=== PATIENT | female | born 1985 | race Caucasian/White ===

== ENCOUNTER 2016-09-21 08:45 | Day surgery (SDC) | payer MEDICAID ==
[2016-09-21] MEDS ORDERED: metroNIDAZOLE/Normal Saline 500 MG in Premix Bag 1 BAG IV ONE (10:00)
[2016-09-21] MEDS ORDERED: ceFAZolin 2 GM in Premix Bag 1 BAG IV ONE (10:00)
[2016-09-21] MEDS ORDERED: ceFAZolin 2 GM in Sodium Chloride 0.9% 50 ML IV ONE (10:00)
[2016-09-21] MEDS ORDERED: fentaNYL 250 MCG/5 ML SDV ONE (11:03)
[2016-09-21] MEDS ORDERED: Midazolam 1 MG/ML 2 ML SDV ONE (11:03)
[2016-09-21] MEDS ORDERED: Ondansetron 4 MG/2 ML SDV ONE (11:04)
[2016-09-21] MEDS ORDERED: Rocuronium 50 MG/5 ML Vial ONE (11:04)
[2016-09-21] MEDS ORDERED: Neostigmine Methylsulfate 1 MG/ML 5 ML Syringe ONE (11:04)
[2016-09-21] MEDS ORDERED: Propofol 200 MG/20 ML SDV ONE (11:04)
[2016-09-21] MEDS ORDERED: Dexamethasone 4 MG/ML SDV ONE (11:04)
[2016-09-21] MEDS ORDERED: Lidocaine 1% with EPINEPHrine 1:100,000 50 ML MDV ONE (11:15)
[2016-09-21] MEDS ORDERED: Bupivacaine 0.5% 50 ML MDV ONE (11:15)
[2016-09-21] MEDS ORDERED: Promethazine 25 MG/ML SDV IM PRN (11:51)
[2016-09-21] MEDS ORDERED: Benzocaine/Cetylpyridinium/Menthol Lozenge MUCMEM PRN (11:51)
[2016-09-21] MEDS ORDERED: Bisacodyl 5 MG Tab PO PRN (11:51)
[2016-09-21] MEDS ORDERED: diphenhydrAMINE 50 MG/ML SDV IVPUSH PRN (11:51)
[2016-09-21] MEDS ORDERED: Docusate Sodium 100 MG Cap PO PRN (11:51)
[2016-09-21] MEDS ORDERED: Acetaminophen 325 MG Tab PO PRN (11:51)
[2016-09-21] MEDS ORDERED: Acetaminophen/HYDROcodone 325-5 MG Tab PO PRN (11:51)
[2016-09-21] MEDS ORDERED: Sodium Chloride 0.9% 1,000 ML IV SCH (12:00)
[2016-09-21] MEDS ORDERED: Scopolamine 1.5 MG Transdermal Patch ONE (12:03)
[2016-09-21] MEDS ORDERED: Ketorolac 60 MG/2 ML SDV ONE (12:04)
--- NOTE | 2016-09-21 14:31 | CONS ---
DATE OF SERVICE: 09/21/2016 REFERRING PHYSICIAN: CONSULTING PHYSICIAN: Ramiro Ponce MD REASON FOR EVALUATION: Abdominal pain. HISTORY OF PRESENT ILLNESS: A pleasant 30-year-old female, who has acute on chronic history of right upper quadrant abdominal pain associated with eating greasy or fatty foods. This is an ongoing problem and has recently gotten worse, but in the last 24 hours has improved. PAST MEDICAL HISTORY: Recent . PAST SURGICAL HISTORY: None. SOCIAL HISTORY: She does not smoke. FAMILY HISTORY: No family history of ongoing disease. REVIEW OF SYSTEMS: GENERAL: The patient feels appropriate for her condition. HEENT: No symptoms. CARDIOVASCULAR: No history of myocardial infarction. RESPIRATORY: No shortness of breath. The patient is also training for a marathon. NEUROLOGICAL: Oriented x3. No symptoms. PSYCH: No concerns. GASTROINTESTINAL: As above. GENITOURINARY: No symptoms. The remainder of review of systems reviewed and is negative. PHYSICAL EXAMINATION: GENERAL: The patient is appropriate for condition. VITAL SIGNS: Stable. HEENT: Pupils are equal. NECK: Supple. CARDIOVASCULAR: Regular rhythm and rate. RESPIRATORY: Lungs are clear to consultation bilaterally. ABDOMEN: Bowel sounds are positive. Mild pain with palpation in right upper quadrant. EXTREMITIES: Full range of motion. NEUROLOGIC: Oriented x3. PSYCH: No gross depression. LABORATORY RESULTS: Show elevated liver function tests with normal bilirubin. ASSESSMENT AND PLAN: Chronic cholecystitis/cholelithiasis with recent acute attack. The patient's elevated liver function tests with a normal bilirubin suggest the possibility of choledocholithiasis, but this most likely subsequently passed. PLAN: The patient will undergo laparoscopic cholecystectomy. We discussed risks, benefits, alternatives, and limitations, including, but not limited to infection, bleeding, and perforation of abdominal structures. We also discussed cystic duct leaks, common bile duct injury. We also discussed cholangiogram and the role of common bile duct exploration. However, the pretest probability of this being consistent with a concomitant active choledocholithiasis. Therefore, we will defer any imaging of the common bile duct in the event that there is a postop bilirubin elevation. The patient understands these risks and wishes to proceed. Diagrams were also used during this discussion to improve communication. Ramiro Ponce MD /[id number]
[2016-09-21 16:13] VITALS: BP 132/67
--- NOTE | 2016-09-22 13:46 | PN ---
DATE OF SERVICE: 09/22/2016 SUBJECTIVE: I called the patient today. She feels subjectively better. I did inform her that her bilirubin is elevated along with her other liver function tests. The patient has been sent to Dr. Lira at [facility] due to concern of choledocholithiasis versus common bile duct injury. I did discuss with the patient and family the differential, the phone number and directions were given to the hospital and the sense of urgency was explained to the patient, and the goal of ERCP and MRCP. Ramiro Ponce MD /[id number]
--- NOTE | 2016-09-24 07:39 | OR ---
DATE OF PROCEDURE: 09/21/2016 This is a re-dictation, please refer to primary dictation if there is a duplicate dictation PROCEDURE: Laparoscopic cholecystectomy. COMPLICATIONS: None. 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 ANESTHESIA: General/local. INDICATIONS: A 30-year-old female with right upper quadrant abdominal pain, subsequently diagnosed with cholelithiasis and cholecystitis requiring laparoscopic cholecystectomy. The patient's bilirubin was noted to be normal prior to the procedure but recent liver function test elevation suggested a probable recent choledocholithiasis that subsequently resolved. Risks, benefits, alternatives, and limitations, including, but not limited to infection, bleeding, cystic duct leaks, common bile duct injuries, and the requirements for open cholecystectomy were explained to the patient and wished to proceed. PROCEDURE IN DETAIL: The patient was placed in a supine position. A supraumbilical curvilinear incision was made and a needle was used to perform a drop test, which was performed without abnormality. The abdomen was subsequently insufflated. An Optiview trocar was entered without abnormality and no evidence of enterotomy or injuries noted during entry. An additional 10 mm and two 5 mm ports were also entered under direct visualization. The omentum was noted to be wrapped around the gallbladder. Using blunt dissection, this would be eventually dissected. The patient had dense inflammation and adhesions in and around the gallbladder consistent with chronic and acute cholelithiasis. The gallbladder was retracted cephalad. The infundibulum was retracted inferior laterally. Over the next 15-20 minutes, a blunt dissection was commenced. The patient was noted to have essentially a very short cystic duct. This was wide at its base. A "clear view" of the gallbladder was obtained with a single pulsatile structure entering the gallbladder and a single nonpulsatile structure in the gallbladder. Due to the wide base of the cystic duct, a blue load stapler was used to transect this. Prior to this, careful attention was noted and images were taken to show that the cystic duct was directly entering the gallbladder. This was subsequently transected. The remaining one-third of the gallbladder was removed off the gallbladder bed without difficulty. The cystic artery was identified and subsequently clipped. The gallbladder will be delivered with a bag through the upper port requiring muscle spreading technique. Of note, the patient's gallbladder was noted to be a hydrops gallbladder. The liver bed was inspected for any evidence of injury, which there was none. This was thoroughly irrigated with 1 L of irrigation. No drains were placed. The abdomen was insufflated and the wounds were subsequently closed with 3-0 Vicryl and 4-0 Vicryl interrupted running fashion. Dermabond was applied. The patient tolerated the procedure well. Ramiro Ponce MD /[id number]
--- NOTE | 2016-09-24 09:12 | OR ---
DATE OF PROCEDURE: PROCEDURE: Laparoscopic cholecystectomy. PREOPERATIVE DIAGNOSIS: Cholelithiasis/cholecystitis, acute on chronic, Hydrops gallbladder. POSTOPERATIVE DIAGNOSIS: Cholelithiasis/cholecystitis, acute on chronic, Hydrops gallbladder. COMPLICATIONS: None. 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 ANESTHESIA: General/local. INDICATIONS: A 30-year-old female with ultrasound diagnosis of cholecystitis and cholelithiasis. RISK: Risks, benefits, alternatives, limitations including, but not limited to infection, bleeding, perforation of abdominal structures, cystic duct, bleeding, common bile duct injuries, open surgery and other risks were explained to the patient and she wished to proceed. PROCEDURE IN DETAIL: The patient was placed in supine position. A supraumbilical curvilinear incision was made. A Veress needle was used to enter the abdomen without abnormality. A drop test was performed. The abdomen was subsequently insufflated. An Optiview trocar was then used to insert after this and no evidence of trauma or injury was noted during entry. An additional 10 and two 5 mm ports were also entered under visualization. The gallbladder was retracted cephalad, the infundibulum was retracted inferolaterally. Immediately upon entering the abdomen, the patient was noted to have dense omentum around the gallbladder suggesting significant disease. It was also noted the patient essentially had a wide short cystic duct. During the blunt dissection, the dense adhesions which were encountered were carefully dissected with blunt dissection. Multiple images were taken of this. The cystic duct was identified and verified multiple times to ensure this directly connects to the gallbladder which it did. Due to its size, it was not amenable to clip therefore a 60 mm reticulating stapler will be used. This was fired without difficulty. The cystic artery was identified and was subsequently clipped. Prior to transection of these structures, 2/3rd of the gallbladder had moved off from the gallbladder bed, now the remaining 1/3rd of the gallbladder was dissected and removed. The gallbladder was removed using a bag and the operative incision was enlarged along with the dilation to facilitate the large inflamed gallbladder. After this was removed, the gallbladder bed was inspected for abnormality which there was none. There was no bleeding, it was thoroughly irrigated irrigation. A limited diagnostic laparoscopy was then performed next. No evidence of enterotomies noted during entry. The intestines, liver, and other abdominal structures were closely examined, and no abnormalities were noted. The air was removed. The wound was closed with 3-0 Vicryl and 4-0 Vicryl interrupted running fashion after being thoroughly irrigated. Dermabond was applied. The patient tolerated the procedure well. Ramiro Ponce MD /[id number]
== END 2016-09-21 18:45 | disposition home or self-care (01) ==
LOC: JP.SDS 08:45 → JP.2SS 13:45 → JP.SDS 18:45
PROVIDERS: ATTEND Surgery
DX: K80.12 Calculus of gallbladder with acute and chronic cholecystitis without obstruction (principal); Z79.899 Other long term (current) drug therapy
CPT/HCPCS: 47562; A9270; J0690; J1100; J1885; J2250; J2405; J2704; J3010; J7050; 88304

== ENCOUNTER 2018-12-11 07:07 | Inpatient (IN) | payer OTHER ==
[2018-12-11] MEDS ORDERED: Sodium Chloride 0.9% 10 ML Syringe FLUSH PRN ×2 (07:36→08:25)
[2018-12-11] MEDS ORDERED: Ondansetron 4 MG/2 ML SDV IV PRN (07:36)
[2018-12-11] MEDS ORDERED: Misoprostol 50 MCG (1/2 of 100 MCG) Tab VAG ONE (07:36)
[2018-12-11] MEDS ORDERED: Acetaminophen 325 MG Tab PO PRN (07:36)
--- NOTE | 2018-12-11 08:24 | PCM.LDHP ---
L&D History of Present Illness - General Date of Service: 12/11/18 Admit Problem/Dx: Patient Status Order with Admit Dx/Problem 12/11/18 07:36 Patient Status [ADT] Routine Admission Diagnosis/Problem Admission Diagnosis/Problem - Related Data Allergies/Adverse Reactions: Allergies Allergy/AdvReac Type Severity Reaction Status Date / Time No Known Allergies Allergy Verified 05/20/16 09:44 Home Medications: Home Meds Ferrous Sulfate 325 mg PO BID 05/21/16 [History] Pnv,Calcium 72/Iron/Folic Acid [ Plus Tablet] 1 tab PO DAILY 05/21/16 [ History] Acetaminophen/HYDROcodone [[place] 325-5 MG] 1 - 2 tab PO Q4H PRN #30 tab [Rx] Past Medical History Gastrointestinal History: Reports: Cholelithiasis [employer] History: Reports: Musculoskeletal History: Reports: Fracture Other Musculoskeletal History: left arm fracture Immunologic History: Reports: None Other Dermatologic History: atopic dermatitis, not present currently - Past Surgical History Dermatological Surgical History: Reports: None Social & Family History - Family History HEENT: Reports: None Hematologic: Reports: Anemia Other Hematologic Family History: with pregnancies Oncologic: Reports: Breast, Prostate Other Oncologic Family History: grandparents - Caffeine Use Caffeine Use: Reports: Other Other Caffeine Use: very occassional H&P Review of Systems - Review of Systems: Review Of Systems: See Below General: Reports: No Symptoms HEENT: Reports: No Symptoms Pulmonary: Reports: No Symptoms Cardiovascular: Reports: No Symptoms Gastrointestinal: Reports: No Symptoms Genitourinary: Reports: No Symptoms Musculoskeletal: Reports: No Symptoms Skin: Reports: No Symptoms Psychiatric: Reports: No Symptoms Neurological: Reports: No Symptoms Hematologic/Lymphatic: Reports: No Symptoms Immunologic: Reports: No Symptoms L&D Exam - Exam Exam: See Below - OB Specific Contraction Intensity: Mild Movement: Active Heart Tones: Present Heart Rate (FHR) Variability: Moderate (6-25 bmp) Presentation: Vertex - Ferrara Score Ferrara Score Cervix Position: Anterior Ferrara Score Consistency: Soft Ferrara Score Effacement: 31-50% Ferrara Score Dilation: 1-2 cm Ferrara Score 's Station: -2 Ferrara Score Total: 7 - Exam General: Alert, Oriented, Cooperative HEENT: PERRLA, Conjunctiva Clear, EACs Clear, EOMI, Hearing Intact, Mucosa Moist & [place], Nares Patent, Normal Nasal Septum, Posterior Pharynx Clear, TMs Clear Neck: Supple, Trachea Midline Lungs: Clear to Auscultation, Normal Respiratory Effort Cardiovascular: Regular Rate, Regular Rhythm GI/Abdominal Exam: Normal Bowel Sounds, Soft, Non-Tender, No Organomegaly, No Distention, No Abnormal Bruit, No Mass, Pelvis Stable Rectal Exam: Normal Exam, Normal Rectal Tone Genitourinary: Normal external exam, Normal bimanual exam, Normal speculum exam Back Exam: Normal Inspection, Full Range of Motion Extremities: Normal Inspection, Normal Range of Motion, Non-Tender, No Pedal Edema, Normal Capillary Refill Skin: Warm, Dry, Intact Neurological: Cranial Nerves Intact, Reflexes Equal Bilateral DTR: 2+: Patella (L), Patella (R) Psychiatric: Alert, Normal Affect, Normal Mood - Patient Data Lab Results Last 24 hrs: Laboratory Results - last 24 hr 12/11/18 12/11/18 12/11/18 Range/Units 07:29 07:32 07:32 WBC 14.5 H (4.5-11.0) K/uL RBC 4.27 (3.30-5.50) M/uL Hgb 12.7 (12.0-15.0) g/dL Hct 37.9 (36.0-48.0) % MCV 89 (80-98) fL MCH 30 (27-31) pg MCHC 34 (32-36) % Plt Count 184 (150-400) K/uL Neut % (Auto) 71 H (36-66) % Lymph % (Auto) 19 L (24-44) % Gem % (Auto) 9 H (2-6) % Eos % (Auto) 2 (2-4) % Baso % (Auto) 0 (0-1) % Sodium 136 L (140-148) mmol/L Potassium 3.6 (3.6-5.2) mmol/L Chloride 102 (100-108) mmol/L Carbon Dioxide 24 (21-32) mmol/L Anion Gap 13.6 (5.0-14.0) mmol/L BUN 11 (7-18) mg/dL Creatinine 0.8 (0.6-1.0) mg/dL Est Cr Clr Drug Dosing TNP Estimated GFR (MDRD) > 60 (>60) Glucose 81 (74-106) mg/dL Calcium 8.5 (8.5-10.1) mg/dL Total Bilirubin 0.3 D (0.2-1.0) mg/dL AST 17 D (15-37) U/L ALT 24 D (12-78) U/L Alkaline Phosphatase 128 H (46-116) U/L Lactate Dehydrogenase 142 (82-234) U/L Total Protein 6.9 (6.4-8.2) g/dL Albumin 2.9 L (3.4-5.0) g/dL Globulin 4.0 H (2.3-3.5) g/dL Albumin/Globulin Ratio 0.7 L (1.2-2.2) Urine Color Yellow (YELLOW) Urine Appearance Slightly cloudy A (CLEAR) Urine pH 7.0 (5.0-8.0) Ur Specific [place] 1.020 (1.008-1.030) Urine Protein Negative (NEGATIVE) mg/dL Urine Glucose (UA) Normal (NEGATIVE) mg/dL Urine Ketones Negative (NEGATIVE) mg/dL Urine Occult Blood Negative (NEGATIVE) Urine Nitrite Negative (NEGATIVE) Urine Bilirubin Negative (NEGATIVE) Urine Urobilinogen 0.2 (0.2-1.0) EU/dL Ur Leukocyte Esterase Negative (NEGATIVE) Urine RBC 0-5 (0-5) Urine WBC 0-5 (0-5) Ur Epithelial Cells Moderate Amorphous Sediment Not seen Urine Bacteria Moderate Urine Mucus Not seen Ur Random Creatinine (20.0-370.0) mg/dL U Random Total Protein (6.0-11.9) mg/dL Protein/Creatinin Ratio (21.0-161.0) mg/g Urine Opiates Screen (NEGATIVE) Ur Oxycodone Screen (NEGATIVE) Urine Methadone Screen (NEGATIVE) Ur Propoxyphene Screen (NEGATIVE) Ur Barbiturates Screen (NEGATIVE) Ur Tricyclics Screen (NEGATIVE) Ur Phencyclidine Scrn (NEGATIVE) Ur Amphetamine Screen (NEGATIVE) U Methamphetamines Scrn (NEGATIVE) Urine MDMA Screen (NEGATIVE) U Benzodiazepines Scrn (NEGATIVE) U Cocaine Metab Screen (NEGATIVE) U Marijuana (THC) Screen (NEGATIVE) 12/11/18 12/11/18 Range/Units 07:32 07:36 WBC (4.5-11.0) K/uL RBC (3.30-5.50) M/uL Hgb (12.0-15.0) g/dL Hct (36.0-48.0) % MCV (80-98) fL MCH (27-31) pg MCHC (32-36) % Plt Count (150-400) K/uL Neut % (Auto) (36-66) % Lymph % (Auto) (24-44) % Gem % (Auto) (2-6) % Eos % (Auto) (2-4) % Baso % (Auto) (0-1) % Sodium (140-148) mmol/L Potassium (3.6-5.2) mmol/L Chloride (100-108) mmol/L Carbon Dioxide (21-32) mmol/L Anion Gap (5.0-14.0) mmol/L BUN (7-18) mg/dL Creatinine (0.6-1.0) mg/dL Est Cr Clr Drug Dosing Estimated GFR (MDRD) (>60) Glucose (74-106) mg/dL Calcium (8.5-10.1) mg/dL Total Bilirubin (0.2-1.0) mg/dL AST (15-37) U/L ALT (12-78) U/L Alkaline Phosphatase (46-116) U/L Lactate Dehydrogenase (82-234) U/L Total Protein (6.4-8.2) g/dL Albumin (3.4-5.0) g/dL Globulin (2.3-3.5) g/dL Albumin/Globulin Ratio (1.2-2.2) Urine Color (YELLOW) Urine Appearance (CLEAR) Urine pH (5.0-8.0) Ur Specific [place] (1.008-1.030) Urine Protein (NEGATIVE) mg/dL Urine Glucose (UA) (NEGATIVE) mg/dL Urine Ketones (NEGATIVE) mg/dL Urine Occult Blood (NEGATIVE) Urine Nitrite (NEGATIVE) Urine Bilirubin (NEGATIVE) Urine Urobilinogen (0.2-1.0) EU/dL Ur Leukocyte Esterase (NEGATIVE) Urine RBC (0-5) Urine WBC (0-5) Ur Epithelial Cells Amorphous Sediment Urine Bacteria Urine Mucus Ur Random Creatinine 92.1 (20.0-370.0) mg/dL U Random Total Protein 10.4 (6.0-11.9) mg/dL Protein/Creatinin Ratio 112.9 (21.0-161.0) mg/g Urine Opiates Screen Negative (NEGATIVE) Ur Oxycodone Screen Negative (NEGATIVE) Urine Methadone Screen Negative (NEGATIVE) Ur Propoxyphene Screen Negative (NEGATIVE) Ur Barbiturates Screen Negative (NEGATIVE) Ur Tricyclics Screen Negative (NEGATIVE) Ur Phencyclidine Scrn Negative (NEGATIVE) Ur Amphetamine Screen Negative (NEGATIVE) U Methamphetamines Scrn Negative (NEGATIVE) Urine MDMA Screen Negative (NEGATIVE) U Benzodiazepines Scrn Negative (NEGATIVE) U Cocaine Metab Screen Negative (NEGATIVE) U Marijuana (THC) Screen Negative (NEGATIVE) Result Diagrams: 12/11/18 07:32 12/11/18 07:32 - Problem List (1) Elevated BP without diagnosis of hypertension SNOMED Code(s): 194693013 ICD Code: R03.0 - ELEVATED BLOOD-PRESSURE READING, W/O DIAGNOSIS OF HTN Status: Acute Current Visit: Yes (2) Post-term , 40-42 weeks of gestation SNOMED Code(s): 50798636571565 ICD Code: O48.0 - POST-TERM Status: Acute Current Visit: Yes (3) Elective induction of labor planned SNOMED Code(s): 150281501 ICD Code: [id number] - Status: Acute Current Visit: No (4) SNOMED Code(s): 52508804 ICD Code: Z33.1 - STATE, INCIDENTAL Status: Acute Current Visit : No Qualifiers: Weeks of gestation: 40 weeks Problem List Initiated/Reviewed/Updated: Yes Orders Last 24hrs: Active Orders 24 hr Category Date Time Status Patient Status [ADT] Routine ADT 12/11/18 07:36 Active Communication Order [RC] ASDIRECTED Care 12/11/18 07:36 Active Heart Tones [RC] PER UNIT ROUTINE Care 12/11/18 07:36 Active May Shower [RC] ASDIRECTED Care 12/11/18 07:36 Active Notify Provider Vital Signs [RC] PRN Care 12/11/18 07:36 Active Notify Provider [RC] PRN Care 12/11/18 07:36 Active Up ad Yani [RC] ASDIRECTED Care 12/11/18 07:36 Active Vital Signs [RC] PER UNIT ROUTINE Care 12/11/18 07:36 Active Regular Diet [DIET] Diet 12/11/18 Breakfast Active Acetaminophen [Tylenol] Med 12/11/18 07:36 Active 650 mg PO Q4H PRN Ondansetron [Zofran] Med 12/11/18 07:36 Active 4 mg IV Q4H PRN Sodium Chloride 0.9% [Saline Flush] Med 12/11/18 07:36 Active 10 ml FLUSH ASDIRECTED PRN Saline Lock Insert [OM.PC] Routine Oth 12/11/18 07:36 Ordered Resuscitation Status Routine Resus Stat 12/11/18 07:36 Ordered Medication Orders Acetaminophen (Tylenol) 650 mg PO Q4H PRN PRN Reason: Pain (Mild 1-3) and fever Ondansetron HCl (Zofran) 4 mg IV Q4H PRN PRN Reason: Nausea/Vomiting Sodium Chloride (Saline Flush) 10 ml FLUSH ASDIRECTED PRN PRN Reason: Keep Vein Open Assessment/Plan Comment:: 12/11/2018 32 yo here at 40 6/7 weeks gestation for induction of labor SVE-1-2/50/-2 Contractions-irregular FHTs category one BP elevated on admission, labs negative, no clonus, DTRS normal Cytotec 50mcg placed vaginally Labs-A positive, Hep B neg, Hep C neg, HIV neg, nonreactive RPR, Rubella Immune , GBS negative, Hgb-12.7, LDH-142, P/C ratio-112.9 Plan- Continue to monitor for active labor Continue to monitor FHTs Pain management per patient request Plan and anticipate a vaginal delivery
[2018-12-11] MEDS ORDERED: Naloxone 0.4 MG/ML SDV IVPUSH PRN (08:25)
[2018-12-11] MEDS ORDERED: ePHEDrine 50 MG/ML SDV IVPUSH PRN ×2 (08:25)
[2018-12-11] MEDS ORDERED: Lactated Ringers 1,000 ML IV ONE (08:25)
[2018-12-11] MEDS ORDERED: diphenhydrAMINE 50 MG/ML SDV IVPUSH PRN ×2 (08:25)
[2018-12-11] MEDS ORDERED: Ropivacaine 200 MG in Premix Bag 1 BAG EPIDUR SCH (08:30)
[2018-12-11] MEDS ORDERED: Lidocaine 1% 50 ML MDV ONE (13:38)
[2018-12-11] MEDS ORDERED: Lidocaine 1% 20 ML MDV INJECT ONE (13:38)
[2018-12-11] MEDS ORDERED: fentaNYL 100 MCG/2 ML SDV ONE (13:40)
[2018-12-11] MEDS ORDERED: fentaNYL 100 MCG/2 ML SDV IVPUSH ONE (13:44)
[2018-12-11] MEDS ORDERED: Carboprost Tromethamine 250 MCG/1 ML Amp ONE (14:01)
[2018-12-11] MEDS ORDERED: Methylergonovine 0.2 MG/1 ML Amp ONE (14:01)
[2018-12-11] MEDS ORDERED: Misoprostol 200 MCG Tab ONE (14:01)
[2018-12-11] MEDS ORDERED: ceFAZolin 2 GM in Premix Bag 1 BAG IV ONE (14:05)
[2018-12-11] MEDS ORDERED: Misoprostol 200 MCG Tab RECTAL ONE (14:21)
[2018-12-11] MEDS ORDERED: Methylergonovine 0.2 MG/1 ML Amp IM ONE (14:21)
[2018-12-11] MEDS ORDERED: Carboprost Tromethamine 250 MCG/1 ML Amp IM ONE (14:52)
[2018-12-11] MEDS ORDERED: Witch Hazel Medicated Pads 100/Jar TOP ONE (16:41)
[2018-12-11] MEDS ORDERED: Lanolin 100% Cream 40 GM Tube TOP ONE (16:41)
[2018-12-11] MEDS ORDERED: Acetaminophen/Codeine 300-30 MG Tab PO PRN (16:41)
[2018-12-11] MEDS ORDERED: Benzocaine 20% Top Spray 56 GM Bottle TOP PRN (16:41)
[2018-12-11] MEDS ORDERED: Ibuprofen 200 MG Tab, 24 Tab Bulk Bottle PO PRN (16:41)
[2018-12-11] MEDS ORDERED: Docusate Sodium 100 MG Cap PO PRN (16:41)
[2018-12-11] MEDS ORDERED: Acetaminophen 325 MG Tab, 50 Tab Bulk Bottle PO PRN (16:41)
--- NOTE | 2018-12-11 17:35 | PCM.PNLD ---
Labor Progress Note - VS & Meds Vital Signs: Last Vital Signs Temp 35.8 C 12/11/18 08:00 Pulse 88 12/11/18 09:00 Resp 20 12/11/18 09:00 BP 139/75 12/11/18 09:00 Pulse Ox Active Medications: Current Medications Acetaminophen (Tylenol) 650 mg PO Q4H PRN PRN Reason: Pain (Mild 1-3) and fever Acetaminophen (Tylenol Bulk Bottle) 325 mg PO Q4H PRN PRN Reason: Pain Acetaminophen/Codeine Phosphate (Tylenol With Codeine No.3 300mg/30mg) 1 tab PO Q4H PRN PRN Reason: Pain (moderate 4-6) Benzocaine (Buoj-L-Ofzofmr 20% Terral) 0 gm TOP Q4H PRN PRN Reason: ITCHY/BURNY Diphenhydramine HCl (Benadryl) 25 mg IVPUSH Q6H PRN PRN Reason: Itching Diphenhydramine HCl (Benadryl) 50 mg IVPUSH Q6H PRN PRN Reason: Itching Docusate Sodium (Colace) 100 mg PO BID PRN PRN Reason: Constipation Ephedrine Sulfate (Ephedrine Sulfate) 10 mg IVPUSH ASDIRECTED PRN PRN Reason: Hypotension Ephedrine Sulfate (Ephedrine Sulfate) 10 mg IVPUSH ASDIRECTED PRN PRN Reason: Hypotension Ropivacaine 200 mg/ Premix 100 mls @ 0 mls/hr EPIDUR ASDIRECTED MELVIN Ibuprofen (Motrin Bulk Bottle) 600 mg PO Q6H PRN PRN Reason: Pain Naloxone HCl (Narcan) 0.1 mg IVPUSH ASDIRECTED PRN PRN Reason: Oversedation Ondansetron HCl (Zofran) 4 mg IV Q4H PRN PRN Reason: Nausea/Vomiting Sodium Chloride (Saline Flush) 10 ml FLUSH ASDIRECTED PRN PRN Reason: Keep Vein Open Sodium Chloride (Saline Flush) 10 ml FLUSH ASDIRECTED PRN PRN Reason: Keep Vein Open Discontinued Medications Carboprost Tromethamine (Hemabate Ds) Confirm Administered Dose 250 mcg .ROUTE .STK-MED ONE Stop: 12/11/18 14:02 Emollient Ointment (Lansinoh Hpa) 1 gm TOP ASDIRECTED ONE Stop: 12/11/18 16:42 Fentanyl (Sublimaze) Confirm Administered Dose 100 mcg .ROUTE .STK-MED ONE Stop: 12/11/18 13:41 Fentanyl (Sublimaze) 50 mcg IVPUSH ONETIME ONE Stop: 12/11/18 13:45 Lactated Ringer's (Ringers, Lactated) 1,000 mls @ 999 mls/hr IV .BOLUS ONE Stop: 12/11/18 09:25 Oxytocin/Sodium Chloride (Pitocin In Ns 20 Units/1,000 Ml) Confirm Administered Dose 20 unit in 1,000 mls @ as directed .ROUTE .STK-MED ONE Stop: 12/11/18 13:40 Cefazolin Sodium/Dextrose 2 gm (/ Premix) 50 mls @ 100 mls/hr IV ONETIME ONE Stop: 12/11/18 14:34 Oxytocin/Sodium Chloride (Pitocin In Ns 20 Units/1,000 Ml) Confirm Administered Dose 20 unit in 1,000 mls @ as directed .ROUTE .STK-MED ONE Stop: 12/11/18 14:33 Lidocaine HCl (Xylocaine 1%) Confirm Administered Dose 50 ml .ROUTE .STK-MED ONE Stop: 12/11/18 13:39 Methylergonovine Maleate (Methergine) Confirm Administered Dose 0.2 mg .ROUTE .STK-MED ONE Stop: 12/11/18 14:02 Misoprostol (Cytotec) 50 mcg VAG ONETIME ONE Stop: 12/11/18 07:37 Last Admin: 12/11/18 08:00 Dose: 50 mcg Misoprostol (Cytotec) Confirm Administered Dose 800 mcg .ROUTE .STK-MED ONE Stop: 12/11/18 14:02 Godfrey Momin (Tucks) 1 pad TOP ASDIRECTED ONE Stop: 12/11/18 16:42 - Uterine Contractions Uterine Monitoring Mode: External [place] Contraction Frequency (min): 140 Contraction Duration (sec): 40-60 Contraction Intensity: Moderate to Strong Uterine Resting Tone: Soft - Monitoring Monitor Mode: External Ultrasound Heart Rate (FHR) Variability: Moderate (6-25 bmp) - Vaginal Exam Dilation (cm): 1-2 Effacement (Percent): 90 Station: -2 Cervical Position: Posterior Sterile Vaginal Exam Performed By: Magi Sharp - Labor Progress (Free Text) Labor Progress: 12/11/2018 Patient has had small amount of change but is soraida very frequently FHTs category one Patient currently comfortable Plan- Continue to monitor labor Continue to monitor FHTS Patient desires epidural for pain control, orders in. Plan and anticipate a vaginal delivery
--- NOTE | 2018-12-11 17:42 | PCM.DEL ---
L & D Note - General Info Date of Service: 12/11/18 - Delivery Note Cervical Ripening Method: Misoprostil Delivery Outcome: Livebirth Delivery Method: Spontaneous Vaginal Delivery-Single Delivery Mode: Spontaneous Presentation: Left Occiput Anterior (NAVIN) Nuchal Cord: Present, Reduced Anesthesia Type: None Amniotic Fluid Description: Meconium Stained Episiotomy Type: None Laceration: 2nd Degree, Perineal Suture type: Chromic Suture size: 3-0 Placenta: Intact, Manual Removal, Retained, Meconium Stained Cord: 3 Vessels Estimated Blood Loss: 1,000 Resuscitation Needed: No Petroleum: Bulb Syringe, Stimulated, Warmed, Walker Used Score 1 min: 5 Score 5 min: 8 Post Delivery Events: Hemorrhage, Retained Placenta Second Stage Interventions: Reports: Second Nurse Assessed Progress of Descent, Second Nurse Reviewed Contraction Pattern, Second Nurse Reviewed Heart Tones, Encouragement Given, Nurse Consultation Requested, Pushing Effectively, Pushing, McRobert's Position - General Info Date of Service: 12/11/18 Functional Status: Reports: Pain Controlled - Review of Systems General: Reports: No Symptoms HEENT: Reports: No Symptoms Pulmonary: Reports: No Symptoms Cardiovascular: Reports: No Symptoms Gastrointestinal: Reports: No Symptoms Genitourinary: Reports: No Symptoms Musculoskeletal: Reports: No Symptoms Skin: Reports: No Symptoms Neurological: Reports: No Symptoms Psychiatric: Reports: No Symptoms - Patient Data Vitals - Most Recent: Last Vital Signs Temp 35.8 C 12/11/18 08:00 Pulse 88 12/11/18 09:00 Resp 20 12/11/18 09:00 BP 139/75 12/11/18 09:00 Pulse Ox Weight - Most Recent: 87.997 kg Lab Results Last 24 Hours: Laboratory Results - last 24 hr 12/11/18 12/11/18 12/11/18 Range/Units 07:29 07:32 07:32 WBC 14.5 H (4.5-11.0) K/uL RBC 4.27 (3.30-5.50) M/uL Hgb 12.7 (12.0-15.0) g/dL Hct 37.9 (36.0-48.0) % MCV 89 (80-98) fL MCH 30 (27-31) pg MCHC 34 (32-36) % Plt Count 184 (150-400) K/uL Neut % (Auto) 71 H (36-66) % Lymph % (Auto) 19 L (24-44) % Coleman % (Auto) 9 H (2-6) % Eos % (Auto) 2 (2-4) % Baso % (Auto) 0 (0-1) % Sodium 136 L (140-148) mmol/L Potassium 3.6 (3.6-5.2) mmol/L Chloride 102 (100-108) mmol/L Carbon Dioxide 24 (21-32) mmol/L Anion Gap 13.6 (5.0-14.0) mmol/L BUN 11 (7-18) mg/dL Creatinine 0.8 (0.6-1.0) mg/dL Est Cr Clr Drug Dosing TNP Estimated GFR (MDRD) > 60 (>60) Glucose 81 (74-106) mg/dL Calcium 8.5 (8.5-10.1) mg/dL Total Bilirubin 0.3 D (0.2-1.0) mg/dL AST 17 D (15-37) U/L ALT 24 D (12-78) U/L Alkaline Phosphatase 128 H (46-116) U/L Lactate Dehydrogenase 142 (82-234) U/L Total Protein 6.9 (6.4-8.2) g/dL Albumin 2.9 L (3.4-5.0) g/dL Globulin 4.0 H (2.3-3.5) g/dL Albumin/Globulin Ratio 0.7 L (1.2-2.2) Urine Color Yellow (YELLOW) Urine Appearance Slightly cloudy A (CLEAR) Urine pH 7.0 (5.0-8.0) Ur Specific Gibson 1.020 (1.008-1.030) Urine Protein Negative (NEGATIVE) mg/dL Urine Glucose (UA) Normal (NEGATIVE) mg/dL Urine Ketones Negative (NEGATIVE) mg/dL Urine Occult Blood Negative (NEGATIVE) Urine Nitrite Negative (NEGATIVE) Urine Bilirubin Negative (NEGATIVE) Urine Urobilinogen 0.2 (0.2-1.0) EU/dL Ur Leukocyte Esterase Negative (NEGATIVE) Urine RBC 0-5 (0-5) Urine WBC 0-5 (0-5) Ur Epithelial Cells Moderate Amorphous Sediment Not seen Urine Bacteria Moderate Urine Mucus Not seen Ur Random Creatinine (20.0-370.0) mg/dL U Random Total Protein (6.0-11.9) mg/dL Protein/Creatinin Ratio (21.0-161.0) mg/g Urine Opiates Screen (NEGATIVE) Ur Oxycodone Screen (NEGATIVE) Urine Methadone Screen (NEGATIVE) Ur Propoxyphene Screen (NEGATIVE) Ur Barbiturates Screen (NEGATIVE) Ur Tricyclics Screen (NEGATIVE) Ur Phencyclidine Scrn (NEGATIVE) Ur Amphetamine Screen (NEGATIVE) U Methamphetamines Scrn (NEGATIVE) Urine MDMA Screen (NEGATIVE) U Benzodiazepines Scrn (NEGATIVE) U Cocaine Metab Screen (NEGATIVE) U Marijuana (THC) Screen (NEGATIVE) Blood Type Gel Antibody Screen 12/11/18 12/11/18 12/11/18 Range/Units 07:32 07:36 14:40 WBC (4.5-11.0) K/uL RBC (3.30-5.50) M/uL Hgb (12.0-15.0) g/dL Hct (36.0-48.0) % MCV (80-98) fL MCH (27-31) pg MCHC (32-36) % Plt Count (150-400) K/uL Neut % (Auto) (36-66) % Lymph % (Auto) (24-44) % Coleman % (Auto) (2-6) % Eos % (Auto) (2-4) % Baso % (Auto) (0-1) % Sodium (140-148) mmol/L Potassium (3.6-5.2) mmol/L Chloride (100-108) mmol/L Carbon Dioxide (21-32) mmol/L Anion Gap (5.0-14.0) mmol/L BUN (7-18) mg/dL Creatinine (0.6-1.0) mg/dL Est Cr Clr Drug Dosing Estimated GFR (MDRD) (>60) Glucose (74-106) mg/dL Calcium (8.5-10.1) mg/dL Total Bilirubin (0.2-1.0) mg/dL AST (15-37) U/L ALT (12-78) U/L Alkaline Phosphatase (46-116) U/L Lactate Dehydrogenase (82-234) U/L Total Protein (6.4-8.2) g/dL Albumin (3.4-5.0) g/dL Globulin (2.3-3.5) g/dL Albumin/Globulin Ratio (1.2-2.2) Urine Color (YELLOW) Urine Appearance (CLEAR) Urine pH (5.0-8.0) Ur Specific Gibson (1.008-1.030) Urine Protein (NEGATIVE) mg/dL Urine Glucose (UA) (NEGATIVE) mg/dL Urine Ketones (NEGATIVE) mg/dL Urine Occult Blood (NEGATIVE) Urine Nitrite (NEGATIVE) Urine Bilirubin (NEGATIVE) Urine Urobilinogen (0.2-1.0) EU/dL Ur Leukocyte Esterase (NEGATIVE) Urine RBC (0-5) Urine WBC (0-5) Ur Epithelial Cells Amorphous Sediment Urine Bacteria Urine Mucus Ur Random Creatinine 92.1 (20.0-370.0) mg/dL U Random Total Protein 10.4 (6.0-11.9) mg/dL Protein/Creatinin Ratio 112.9 (21.0-161.0) mg/g Urine Opiates Screen Negative (NEGATIVE) Ur Oxycodone Screen Negative (NEGATIVE) Urine Methadone Screen Negative (NEGATIVE) Ur Propoxyphene Screen Negative (NEGATIVE) Ur Barbiturates Screen Negative (NEGATIVE) Ur Tricyclics Screen Negative (NEGATIVE) Ur Phencyclidine Scrn Negative (NEGATIVE) Ur Amphetamine Screen Negative (NEGATIVE) U Methamphetamines Scrn Negative (NEGATIVE) Urine MDMA Screen Negative (NEGATIVE) U Benzodiazepines Scrn Negative (NEGATIVE) U Cocaine Metab Screen Negative (NEGATIVE) U Marijuana (THC) Screen Negative (NEGATIVE) Blood Type A POSITIVE Gel Antibody Screen Negative 12/11/18 Range/Units 16:41 WBC (4.5-11.0) K/uL RBC (3.30-5.50) M/uL Hgb 11.2 L (12.0-15.0) g/dL Hct 34.0 L (36.0-48.0) % MCV (80-98) fL MCH (27-31) pg MCHC (32-36) % Plt Count (150-400) K/uL Neut % (Auto) (36-66) % Lymph % (Auto) (24-44) % Coleman % (Auto) (2-6) % Eos % (Auto) (2-4) % Baso % (Auto) (0-1) % Sodium (140-148) mmol/L Potassium (3.6-5.2) mmol/L Chloride (100-108) mmol/L Carbon Dioxide (21-32) mmol/L Anion Gap (5.0-14.0) mmol/L BUN (7-18) mg/dL Creatinine (0.6-1.0) mg/dL Est Cr Clr Drug Dosing Estimated GFR (MDRD) (>60) Glucose (74-106) mg/dL Calcium (8.5-10.1) mg/dL Total Bilirubin (0.2-1.0) mg/dL AST (15-37) U/L ALT (12-78) U/L Alkaline Phosphatase (46-116) U/L Lactate Dehydrogenase (82-234) U/L Total Protein (6.4-8.2) g/dL Albumin (3.4-5.0) g/dL Globulin (2.3-3.5) g/dL Albumin/Globulin Ratio (1.2-2.2) Urine Color (YELLOW) Urine Appearance (CLEAR) Urine pH (5.0-8.0) Ur Specific Gibson (1.008-1.030) Urine Protein (NEGATIVE) mg/dL Urine Glucose (UA) (NEGATIVE) mg/dL Urine Ketones (NEGATIVE) mg/dL Urine Occult Blood (NEGATIVE) Urine Nitrite (NEGATIVE) Urine Bilirubin (NEGATIVE) Urine Urobilinogen (0.2-1.0) EU/dL Ur Leukocyte Esterase (NEGATIVE) Urine RBC (0-5) Urine WBC (0-5) Ur Epithelial Cells Amorphous Sediment Urine Bacteria Urine Mucus Ur Random Creatinine (20.0-370.0) mg/dL U Random Total Protein (6.0-11.9) mg/dL Protein/Creatinin Ratio (21.0-161.0) mg/g Urine Opiates Screen (NEGATIVE) Ur Oxycodone Screen (NEGATIVE) Urine Methadone Screen (NEGATIVE) Ur Propoxyphene Screen (NEGATIVE) Ur Barbiturates Screen (NEGATIVE) Ur Tricyclics Screen (NEGATIVE) Ur Phencyclidine Scrn (NEGATIVE) Ur Amphetamine Screen (NEGATIVE) U Methamphetamines Scrn (NEGATIVE) Urine MDMA Screen (NEGATIVE) U Benzodiazepines Scrn (NEGATIVE) U Cocaine Metab Screen (NEGATIVE) U Marijuana (THC) Screen (NEGATIVE) Blood Type Gel Antibody Screen Med Orders - Current: Current Medications Acetaminophen (Tylenol) 650 mg PO Q4H PRN PRN Reason: Pain (Mild 1-3) and fever Acetaminophen (Tylenol Bulk Bottle) 325 mg PO Q4H PRN PRN Reason: Pain Acetaminophen/Codeine Phosphate (Tylenol With Codeine No.3 300mg/30mg) 1 tab PO Q4H PRN PRN Reason: Pain (moderate 4-6) Benzocaine (Ucvy-E-Dvsdqle 20% Carolina) 0 gm TOP Q4H PRN PRN Reason: ITCHY/BURNY Diphenhydramine HCl (Benadryl) 25 mg IVPUSH Q6H PRN PRN Reason: Itching Diphenhydramine HCl (Benadryl) 50 mg IVPUSH Q6H PRN PRN Reason: Itching Docusate Sodium (Colace) 100 mg PO BID PRN PRN Reason: Constipation Ephedrine Sulfate (Ephedrine Sulfate) 10 mg IVPUSH ASDIRECTED PRN PRN Reason: Hypotension Ephedrine Sulfate (Ephedrine Sulfate) 10 mg IVPUSH ASDIRECTED PRN PRN Reason: Hypotension Ropivacaine 200 mg/ Premix 100 mls @ 0 mls/hr EPIDUR ASDIRECTED MELVIN Ibuprofen (Motrin Bulk Bottle) 600 mg PO Q6H PRN PRN Reason: Pain Naloxone HCl (Narcan) 0.1 mg IVPUSH ASDIRECTED PRN PRN Reason: Oversedation Ondansetron HCl (Zofran) 4 mg IV Q4H PRN PRN Reason: Nausea/Vomiting Sodium Chloride (Saline Flush) 10 ml FLUSH ASDIRECTED PRN PRN Reason: Keep Vein Open Sodium Chloride (Saline Flush) 10 ml FLUSH ASDIRECTED PRN PRN Reason: Keep Vein Open Discontinued Medications Carboprost Tromethamine (Hemabate Ds) Confirm Administered Dose 250 mcg .ROUTE .STK-MED ONE Stop: 12/11/18 14:02 Emollient Ointment (Lansinoh Hpa) 1 gm TOP ASDIRECTED ONE Stop: 12/11/18 16:42 Fentanyl (Sublimaze) Confirm Administered Dose 100 mcg .ROUTE .STK-MED ONE Stop: 12/11/18 13:41 Fentanyl (Sublimaze) 50 mcg IVPUSH ONETIME ONE Stop: 12/11/18 13:45 Lactated Ringer's (Ringers, Lactated) 1,000 mls @ 999 mls/hr IV .BOLUS ONE Stop: 12/11/18 09:25 Oxytocin/Sodium Chloride (Pitocin In Ns 20 Units/1,000 Ml) Confirm Administered Dose 20 unit in 1,000 mls @ as directed .ROUTE .STK-MED ONE Stop: 12/11/18 13:40 Cefazolin Sodium/Dextrose 2 gm (/ Premix) 50 mls @ 100 mls/hr IV ONETIME ONE Stop: 12/11/18 14:34 Oxytocin/Sodium Chloride (Pitocin In Ns 20 Units/1,000 Ml) Confirm Administered Dose 20 unit in 1,000 mls @ as directed .ROUTE .STK-MED ONE Stop: 12/11/18 14:33 Lidocaine HCl (Xylocaine 1%) Confirm Administered Dose 50 ml .ROUTE .STK-MED ONE Stop: 12/11/18 13:39 Methylergonovine Maleate (Methergine) Confirm Administered Dose 0.2 mg .ROUTE .STK-MED ONE Stop: 12/11/18 14:02 Misoprostol (Cytotec) 50 mcg VAG ONETIME ONE Stop: 12/11/18 07:37 Last Admin: 12/11/18 08:00 Dose: 50 mcg Misoprostol (Cytotec) Confirm Administered Dose 800 mcg .ROUTE .STK-MED ONE Stop: 12/11/18 14:02 Godfrey Barrerael (Tucks) 1 pad TOP ASDIRECTED ONE Stop: 12/11/18 16:42 - Exam General: Alert, Oriented, Cooperative HEENT: Pupils Equal, Pupils Reactive, EOMI, Mucous Membr. Moist/[place] Neck: Supple Lungs: Clear to Auscultation, Normal Respiratory Effort Cardiovascular: Regular Rate, Regular Rhythm GI/Abdominal Exam: Normal Bowel Sounds, Soft, Non-Tender, No Organomegaly, No Distention, No Abnormal Bruit, No Mass, Pelvis Stable (Female) Exam: Normal External Exam, Normal Speculum Exam, Normal Bimanual Exam, Enlarged Uterus, Vaginal Bleeding Back Exam: Normal Inspection, Full Range of Motion Extremities: Normal Inspection, Normal Range of Motion, Non-Tender, No Pedal Edema, Normal Capillary Refill Skin: Warm, Dry, Intact Neurological: No New Focal Deficit Psy/Mental Status: Alert, Normal Affect, Normal Mood - Problem List & Annotations (1) Elevated BP without diagnosis of hypertension SNOMED Code(s): 377757568 Code(s): R03.0 - ELEVATED BLOOD-PRESSURE READING, W/O DIAGNOSIS OF HTN Status: Acute Current Visit: Yes (2) Post-term , 40-42 weeks of gestation SNOMED Code(s): 57118948684473 Code(s): O48.0 - POST-TERM Status: Acute Current Visit: Yes (3) Elective induction of labor planned SNOMED Code(s): 570873520 Code(s): RBQ7296 - Status: Acute Current Visit: No (4) SNOMED Code(s): 04526338 Code(s): Z33.1 - STATE, INCIDENTAL Status: Acute Current Visit: No Qualifiers: Weeks of gestation: 40 weeks (5) hemorrhage SNOMED Code(s): 33031498 Code(s): O72.1 - OTHER IMMEDIATE HEMORRHAGE Status: Acute Current Visit: Yes (6) Precipitous delivery SNOMED Code(s): 832887474, 576922369 Code(s): O62.3 - PRECIPITATE LABOR Status: Acute Current Visit: Yes (7) Meconium in amniotic fluid SNOMED Code(s): 036995701, 526408142 Code(s): P96.83 - MECONIUM STAINING Status: Acute Current Visit: Yes (8) Retained placenta with hemorrhage SNOMED Code(s): 62314899 Code(s): O72.0 - THIRD-STAGE HEMORRHAGE Status: Acute Current Visit: Yes (9) Vaginal delivery SNOMED Code(s): 720715755 Code(s): O80 - ENCOUNTER FOR FULL-TERM UNCOMPLICATED DELIVERY Status: Acute Current Visit: No - Problem List Review Problem List Initiated/Reviewed/Updated: Yes - My Orders Last 24 Hours: My Active Orders 12/11/18 07:36 Patient Status [ADT] Routine Communication Order [RC] ASDIRECTED Heart Tones [RC] PER UNIT ROUTINE May Shower [RC] ASDIRECTED Notify Provider Vital Signs [RC] PRN Notify Provider [RC] PRN Up ad Yani [RC] ASDIRECTED Acetaminophen [Tylenol] 650 mg PO Q4H PRN Ondansetron [Zofran] 4 mg IV Q4H PRN Sodium Chloride 0.9% [Saline Flush] 10 ml FLUSH ASDIRECTED PRN Saline Lock Insert [OM.PC] Routine Resuscitation Status Routine 12/11/18 08:25 Communication Order [RC] ASDIRECTED Communication Order [RC] ROUTINE Communication Order [RC] ROUTINE Communication Order [RC] ROUTINE Local Anesthetic Infusion Pump [RC] ASDIRECTED Oxygen Therapy [RC] ASDIRECTED PCEA Epidural [RC] ASDIRECTED PCEA Epidural [RC] ASDIRECTED PCEA Epidural [RC] ASDIRECTED Pulse Oximetry [RC] ASDIRECTED Urinary Catheter Assessment [RC] ASDIRECTED Naloxone [Narcan] 0.1 mg IVPUSH ASDIRECTED PRN Sodium Chloride 0.9% [Saline Flush] 10 ml FLUSH ASDIRECTED PRN diphenhydrAMINE [Benadryl] 25 mg IVPUSH Q6H PRN diphenhydrAMINE [Benadryl] 50 mg IVPUSH Q6H PRN ePHEDrine [ePHEDrine sulfate] 10 mg IVPUSH ASDIRECTED PRN ePHEDrine [ePHEDrine sulfate] 10 mg IVPUSH ASDIRECTED PRN Epidural Catheter Management [OM.PC] Routine Epidural Catheter Management [OM.PC] Urgent Peripheral IV Insertion Pediatric [OM.PC] Routine 12/11/18 08:30 Insert Urinary Catheter [OM.PC] ASDIRECTED Ropivacaine [Naropin 0.2%] 200 mg Premix Bag 1 bag EPIDUR ASDIRECTED 12/11/18 14:40 PATIENT RETYPE [BBK] Routine TYPE AND SCREEN [BBK] Routine 12/11/18 16:41 Acetaminophen [Tylenol Bulk Bottle] 325 mg PO Q4H PRN Acetaminophen/Codeine [Tylenol with Codeine No.3 300MG/30MG] 1 tab PO Q4H PRN Benzocaine [Lbgv-E-Ulqyfwv 20% Carolina] See Dose Instructions TOP Q4H PRN Docusate Sodium [Colace] 100 mg PO BID PRN Ibuprofen [Motrin Bulk Bottle] 600 mg PO Q6H PRN Assess Lochia [WOMSER] Per Unit Routine Assess Uterine Involution [WOMSER] Per Unit Routine 12/11/18 16:42 Patient Status [ADT] Routine Vital Signs [RC] PFP 12/11/18 16:43 Ice Therapy [OM.PC] Per Unit Routine Perineal Care [OM.PC] Per Unit Routine Sitz Bath [OM.PC] Per Unit Routine 12/11/18 Breakfast Regular Diet [DIET] - Assessment Assessment:: 12/11/2018 32 yo at 40 6/7 gestational weeks proceeded to deliver precipitously. Patient had been 1-2/80/-2 at noon and then her membranes ruptured at 1300 and patient was having variable heart tones and was dilating quickly. Patient was placed on left side, provider in the room, O2 applied, bolus started. We then continue to reposition while patient proceeded to change cervix quickly. Do to FHT variables decision was made to call OR team to have them head this direction , after that decision was made patient was complete and instead we had patient push. Two pushes and head was out, nuchal cord times one was reduced easily, due to position of patient did need McRobert's and one round of suprapubic to aid in delivery of shoulders and delivered a viable male infant on 12/11/2018 @ 1333 in ÁNGEL[place] position over and intact perineum. was then cord double clamped and cut and brought to warmer for immediate interventions. Infant on way to warmer began to cry some and with the aide of drying, stimulating, and bulb suction began to cry vigrously. APGARS-5/8, weight-9lbs 0oz, length -21.3 inches. was then placed skin to skin with mother at this time. While assessing mother she then began to have some bleeding and her placenta would not come spontaneously. At this time one dose of IV fentanyl was used for mother for pain control, a second degree perineal laceration was noted so lidocaine was placed while waiting for placenta with plans of repairing after placenta came. Due to retained placenta we decided to use nitrous for pain control. Attempted manual removal times two at this time did have a second IV started, and started hemorrhage protocol. Also gave ancef 2grams IV for prophylaxis, on third attempt at manual removal placenta finally came. EBL- 1000. Laceration noted-second degree, was very swollen, hard to repair due to swelling, also patient had bleeding and had to stop suturing multiple times to assess her bleeding and fundus. Did loose sutures in usual fashion with 3.0 vicryl. Did educate patient that due to swelling may need to reevaluate repair later today or in am and also may need to watch for a hematoma. Did do a thorough inspection of vaginal vault, no lacerations noted of cervix, rectum, or labia. Straight cath done for bleeding for approx 350ml of urine. Mother currently stable in labor and delivery room. Stages- 1st [id number] 2nd [id number] 3rd [id number] - Plan Plan:: 12/11/2018 32 yo here at 40 6/7 weeks gestation for induction of labor SVE-1-2/50/-2 Contractions-irregular FHTs category one BP elevated on admission, labs negative, no clonus, DTRS normal Cytotec 50mcg placed vaginally Labs-A positive, Hep B neg, Hep C neg, HIV neg, nonreactive RPR, Rubella Immune , GBS negative, Hgb-12.7, LDH-142, P/C ratio-112.9 Plan- Continue to monitor for active labor Continue to monitor FHTs Pain management per patient request Plan and anticipate a vaginal delivery 12/11/2018 Routine cares Encourage and support Closely monitor fundus, bleeding and urinary output Pain medication per her request Encourage good Perineal care Ice packs routine for perineum hemogram now and CBC in am Leave IV sites in
[2018-12-11] MEDS ORDERED: Loperamide 2 MG Cap PO PRN (17:47)
--- NOTE | 2018-12-12 07:53 | PCM.PNPP ---
- General Info Date of Service: 12/11/18 Functional Status: Reports: Pain Controlled - Review of Systems General: Reports: No Symptoms HEENT: Reports: No Symptoms Pulmonary: Reports: No Symptoms Cardiovascular: Reports: No Symptoms Gastrointestinal: Reports: No Symptoms Genitourinary: Reports: No Symptoms Musculoskeletal: Reports: No Symptoms Skin: Reports: No Symptoms Neurological: Reports: No Symptoms Psychiatric: Reports: No Symptoms - General Info Date of Service: 12/11/18 - Patient Data Vital Signs - Most Recent: Last Vital Signs Temp 35.8 C 12/12/18 07:26 Pulse 85 12/12/18 07:26 Resp 18 12/12/18 07:26 BP 101/51 L 12/12/18 07:26 Pulse Ox 100 12/12/18 07:26 Weight - Most Recent: 87.997 kg I&O - Last 24 Hours: Intake & Output 12/11/18 12/12/18 12/12/18 22:59 06:59 14:59 Intake Total 4219 Output Total 1825 Balance 2394 Lab Results - Last 24 Hours: Laboratory Results - last 24 hr 12/11/18 12/11/18 12/11/18 Range/Units 07:29 07:32 07:32 WBC (4.5-11.0) K/uL RBC (3.30-5.50) M/uL Hgb (12.0-15.0) g/dL Hct (36.0-48.0) % MCV (80-98) fL MCH (27-31) pg MCHC (32-36) % Plt Count (150-400) K/uL Neut % (Auto) (36-66) % Lymph % (Auto) (24-44) % [place] % (Auto) (2-6) % Eos % (Auto) (2-4) % Baso % (Auto) (0-1) % Sodium 136 L (140-148) mmol/L Potassium 3.6 (3.6-5.2) mmol/L Chloride 102 (100-108) mmol/L Carbon Dioxide 24 (21-32) mmol/L Anion Gap 13.6 (5.0-14.0) mmol/L BUN 11 (7-18) mg/dL Creatinine 0.8 (0.6-1.0) mg/dL Est Cr Clr Drug Dosing TNP Estimated GFR (MDRD) > 60 (>60) Glucose 81 (74-106) mg/dL Calcium 8.5 (8.5-10.1) mg/dL Total Bilirubin 0.3 D (0.2-1.0) mg/dL AST 17 D (15-37) U/L ALT 24 D (12-78) U/L Alkaline Phosphatase 128 H (46-116) U/L Lactate Dehydrogenase 142 (82-234) U/L Total Protein 6.9 (6.4-8.2) g/dL Albumin 2.9 L (3.4-5.0) g/dL Globulin 4.0 H (2.3-3.5) g/dL Albumin/Globulin Ratio 0.7 L (1.2-2.2) Urine Color Yellow (YELLOW) Urine Appearance Slightly cloudy A (CLEAR) Urine pH 7.0 (5.0-8.0) Ur Specific [place] 1.020 (1.008-1.030) Urine Protein Negative (NEGATIVE) mg/dL Urine Glucose (UA) Normal (NEGATIVE) mg/dL Urine Ketones Negative (NEGATIVE) mg/dL Urine Occult Blood Negative (NEGATIVE) Urine Nitrite Negative (NEGATIVE) Urine Bilirubin Negative (NEGATIVE) Urine Urobilinogen 0.2 (0.2-1.0) EU/dL Ur Leukocyte Esterase Negative (NEGATIVE) Urine RBC 0-5 (0-5) Urine WBC 0-5 (0-5) Ur Epithelial Cells Moderate Amorphous Sediment Not seen Urine Bacteria Moderate Urine Mucus Not seen Ur Random Creatinine 92.1 (20.0-370.0) mg/dL U Random Total Protein 10.4 (6.0-11.9) mg/dL Protein/Creatinin Ratio 112.9 (21.0-161.0) mg/g Urine Opiates Screen (NEGATIVE) Ur Oxycodone Screen (NEGATIVE) Urine Methadone Screen (NEGATIVE) Ur Propoxyphene Screen (NEGATIVE) Ur Barbiturates Screen (NEGATIVE) Ur Tricyclics Screen (NEGATIVE) Ur Phencyclidine Scrn (NEGATIVE) Ur Amphetamine Screen (NEGATIVE) U Methamphetamines Scrn (NEGATIVE) Urine MDMA Screen (NEGATIVE) U Benzodiazepines Scrn (NEGATIVE) U Cocaine Metab Screen (NEGATIVE) U Marijuana (THC) Screen (NEGATIVE) Blood Type Gel Antibody Screen 12/11/18 12/11/18 12/11/18 Range/Units 07:36 14:40 16:41 WBC (4.5-11.0) K/uL RBC (3.30-5.50) M/uL Hgb 11.2 L (12.0-15.0) g/dL Hct 34.0 L (36.0-48.0) % MCV (80-98) fL MCH (27-31) pg MCHC (32-36) % Plt Count (150-400) K/uL Neut % (Auto) (36-66) % Lymph % (Auto) (24-44) % [place] % (Auto) (2-6) % Eos % (Auto) (2-4) % Baso % (Auto) (0-1) % Sodium (140-148) mmol/L Potassium (3.6-5.2) mmol/L Chloride (100-108) mmol/L Carbon Dioxide (21-32) mmol/L Anion Gap (5.0-14.0) mmol/L BUN (7-18) mg/dL Creatinine (0.6-1.0) mg/dL Est Cr Clr Drug Dosing Estimated GFR (MDRD) (>60) Glucose (74-106) mg/dL Calcium (8.5-10.1) mg/dL Total Bilirubin (0.2-1.0) mg/dL AST (15-37) U/L ALT (12-78) U/L Alkaline Phosphatase (46-116) U/L Lactate Dehydrogenase (82-234) U/L Total Protein (6.4-8.2) g/dL Albumin (3.4-5.0) g/dL Globulin (2.3-3.5) g/dL Albumin/Globulin Ratio (1.2-2.2) Urine Color (YELLOW) Urine Appearance (CLEAR) Urine pH (5.0-8.0) Ur Specific [place] (1.008-1.030) Urine Protein (NEGATIVE) mg/dL Urine Glucose (UA) (NEGATIVE) mg/dL Urine Ketones (NEGATIVE) mg/dL Urine Occult Blood (NEGATIVE) Urine Nitrite (NEGATIVE) Urine Bilirubin (NEGATIVE) Urine Urobilinogen (0.2-1.0) EU/dL Ur Leukocyte Esterase (NEGATIVE) Urine RBC (0-5) Urine WBC (0-5) Ur Epithelial Cells Amorphous Sediment Urine Bacteria Urine Mucus Ur Random Creatinine (20.0-370.0) mg/dL U Random Total Protein (6.0-11.9) mg/dL Protein/Creatinin Ratio (21.0-161.0) mg/g Urine Opiates Screen Negative (NEGATIVE) Ur Oxycodone Screen Negative (NEGATIVE) Urine Methadone Screen Negative (NEGATIVE) Ur Propoxyphene Screen Negative (NEGATIVE) Ur Barbiturates Screen Negative (NEGATIVE) Ur Tricyclics Screen Negative (NEGATIVE) Ur Phencyclidine Scrn Negative (NEGATIVE) Ur Amphetamine Screen Negative (NEGATIVE) U Methamphetamines Scrn Negative (NEGATIVE) Urine MDMA Screen Negative (NEGATIVE) U Benzodiazepines Scrn Negative (NEGATIVE) U Cocaine Metab Screen Negative (NEGATIVE) U Marijuana (THC) Screen Negative (NEGATIVE) Blood Type A POSITIVE Gel Antibody Screen Negative 12/11/18 12/12/18 Range/Units 20:56 05:47 WBC 15.6 H (4.5-11.0) K/uL RBC 3.12 L (3.30-5.50) M/uL Hgb 10.6 L 9.2 L (12.0-15.0) g/dL Hct 31.7 L 28.2 L (36.0-48.0) % MCV 90 (80-98) fL MCH 30 (27-31) pg MCHC 33 (32-36) % Plt Count 139 L (150-400) K/uL Neut % (Auto) 76 H (36-66) % Lymph % (Auto) 12 L (24-44) % [place] % (Auto) 12 H (2-6) % Eos % (Auto) 1 L (2-4) % Baso % (Auto) 0 (0-1) % Sodium (140-148) mmol/L Potassium (3.6-5.2) mmol/L Chloride (100-108) mmol/L Carbon Dioxide (21-32) mmol/L Anion Gap (5.0-14.0) mmol/L BUN (7-18) mg/dL Creatinine (0.6-1.0) mg/dL Est Cr Clr Drug Dosing Estimated GFR (MDRD) (>60) Glucose (74-106) mg/dL Calcium (8.5-10.1) mg/dL Total Bilirubin (0.2-1.0) mg/dL AST (15-37) U/L ALT (12-78) U/L Alkaline Phosphatase (46-116) U/L Lactate Dehydrogenase (82-234) U/L Total Protein (6.4-8.2) g/dL Albumin (3.4-5.0) g/dL Globulin (2.3-3.5) g/dL Albumin/Globulin Ratio (1.2-2.2) Urine Color (YELLOW) Urine Appearance (CLEAR) Urine pH (5.0-8.0) Ur Specific [place] (1.008-1.030) Urine Protein (NEGATIVE) mg/dL Urine Glucose (UA) (NEGATIVE) mg/dL Urine Ketones (NEGATIVE) mg/dL Urine Occult Blood (NEGATIVE) Urine Nitrite (NEGATIVE) Urine Bilirubin (NEGATIVE) Urine Urobilinogen (0.2-1.0) EU/dL Ur Leukocyte Esterase (NEGATIVE) Urine RBC (0-5) Urine WBC (0-5) Ur Epithelial Cells Amorphous Sediment Urine Bacteria Urine Mucus Ur Random Creatinine (20.0-370.0) mg/dL U Random Total Protein (6.0-11.9) mg/dL Protein/Creatinin Ratio (21.0-161.0) mg/g Urine Opiates Screen (NEGATIVE) Ur Oxycodone Screen (NEGATIVE) Urine Methadone Screen (NEGATIVE) Ur Propoxyphene Screen (NEGATIVE) Ur Barbiturates Screen (NEGATIVE) Ur Tricyclics Screen (NEGATIVE) Ur Phencyclidine Scrn (NEGATIVE) Ur Amphetamine Screen (NEGATIVE) U Methamphetamines Scrn (NEGATIVE) Urine MDMA Screen (NEGATIVE) U Benzodiazepines Scrn (NEGATIVE) U Cocaine Metab Screen (NEGATIVE) U Marijuana (THC) Screen (NEGATIVE) Blood Type Gel Antibody Screen Med Orders - Current: Current Medications Acetaminophen (Tylenol) 650 mg PO Q4H PRN PRN Reason: Pain (Mild 1-3) and fever Acetaminophen (Tylenol Bulk Bottle) 325 mg PO Q4H PRN PRN Reason: Pain Last Admin: 12/11/18 19:59 Dose: 1 bottle Acetaminophen/Codeine Phosphate (Tylenol With Codeine No.3 300mg/30mg) 1 tab PO Q4H PRN PRN Reason: Pain (moderate 4-6) Last Admin: 12/11/18 19:25 Dose: 1 tab Benzocaine (Akkg-F-Abqchup 20% [place]) 0 gm TOP Q4H PRN PRN Reason: ITCHY/BURNY Last Admin: 12/11/18 21:10 Dose: 1 bottle Diphenhydramine HCl (Benadryl) 25 mg IVPUSH Q6H PRN PRN Reason: Itching Diphenhydramine HCl (Benadryl) 50 mg IVPUSH Q6H PRN PRN Reason: Itching Docusate Sodium (Colace) 100 mg PO BID PRN PRN Reason: Constipation Ephedrine Sulfate (Ephedrine Sulfate) 10 mg IVPUSH ASDIRECTED PRN PRN Reason: Hypotension Ephedrine Sulfate (Ephedrine Sulfate) 10 mg IVPUSH ASDIRECTED PRN PRN Reason: Hypotension Ropivacaine 200 mg/ Premix 100 mls @ 0 mls/hr EPIDUR ASDIRECTED MELVIN Oxytocin/Sodium Chloride (Pitocin In Ns 20 Units/1,000 Ml) 20 unit in 1,000 mls @ 999 mls/hr IV TITRATE MELVIN; Protocol Last Admin: 12/11/18 13:40 Dose: 999 mls/hr, 999 mls/hr Oxytocin/Sodium Chloride (Pitocin In Ns 20 Units/1,000 Ml) 20 unit in 1,000 mls @ 999 mls/hr IV TITRATE MELVIN; Protocol Last Titration: 12/11/18 15:10 Dose: 125 mls/hr, 125 mls/hr Ibuprofen (Motrin Bulk Bottle) 600 mg PO Q6H PRN PRN Reason: Pain Last Admin: 12/11/18 19:54 Dose: 1 bottle Loperamide HCl (Imodium) 2 mg PO Q4H PRN PRN Reason: Diarrhea Last Admin: 12/11/18 19:24 Dose: 2 mg Naloxone HCl (Narcan) 0.1 mg IVPUSH ASDIRECTED PRN PRN Reason: Oversedation Ondansetron HCl (Zofran) 4 mg IV Q4H PRN PRN Reason: Nausea/Vomiting Sodium Chloride (Saline Flush) 10 ml FLUSH ASDIRECTED PRN PRN Reason: Keep Vein Open Sodium Chloride (Saline Flush) 10 ml FLUSH ASDIRECTED PRN PRN Reason: Keep Vein Open Discontinued Medications Carboprost Tromethamine (Hemabate Ds) Confirm Administered Dose 250 mcg .ROUTE .[facility]-MED ONE Stop: 12/11/18 14:02 Last Admin: 12/11/18 19:02 Dose: Not Given Carboprost Tromethamine (Hemabate Ds) 250 mcg IM ONETIME ONE Stop: 12/11/18 14:53 Last Admin: 12/11/18 14:52 Dose: 250 mcg Emollient Ointment (Lansinoh Hpa) 1 gm TOP ASDIRECTED ONE Stop: 12/11/18 16:42 Fentanyl (Sublimaze) Confirm Administered Dose 100 mcg .ROUTE .STK-MED ONE Stop: 12/11/18 13:41 Last Admin: 12/11/18 18:34 Dose: Not Given Fentanyl (Sublimaze) 50 mcg IVPUSH ONETIME ONE Stop: 12/11/18 13:45 Last Admin: 12/11/18 13:40 Dose: 50 mcg Lactated Ringer's (Ringers, Lactated) 1,000 mls @ 999 mls/hr IV .BOLUS ONE Stop: 12/11/18 09:25 Last Admin: 12/11/18 12:30 Dose: 999 mls/hr Oxytocin/Sodium Chloride (Pitocin In Ns 20 Units/1,000 Ml) Confirm Administered Dose 20 unit in 1,000 mls @ as directed .ROUTE .STK-MED ONE Stop: 12/11/18 13:40 Last Admin: 12/11/18 19:02 Dose: Not Given Cefazolin Sodium/Dextrose 2 gm (/ Premix) 50 mls @ 100 mls/hr IV ONETIME ONE Stop: 12/11/18 14:34 Last Admin: 12/11/18 14:13 Dose: 100 mls/hr Oxytocin/Sodium Chloride (Pitocin In Ns 20 Units/1,000 Ml) Confirm Administered Dose 20 unit in 1,000 mls @ as directed .ROUTE .STK-MED ONE Stop: 12/11/18 14:33 Last Admin: 12/11/18 18:56 Dose: Not Given Lidocaine HCl (Xylocaine 1%) Confirm Administered Dose 50 ml .ROUTE .STK-MED ONE Stop: 12/11/18 13:39 Last Admin: 12/11/18 18:50 Dose: Not Given Lidocaine HCl (Xylocaine 1%) 50 ml INJECT ONETIME ONE Stop: 12/11/18 13:39 Last Admin: 12/11/18 13:38 Dose: 50 ml Methylergonovine Maleate (Methergine) Confirm Administered Dose 0.2 mg .ROUTE .STK-MED ONE Stop: 12/11/18 14:02 Last Admin: 12/11/18 19:02 Dose: Not Given Methylergonovine Maleate (Methergine) 0.2 mg IM ONETIME ONE Stop: 12/11/18 14:22 Last Admin: 12/11/18 14:21 Dose: 0.2 mg Misoprostol (Cytotec) 50 mcg VAG ONETIME ONE Stop: 12/11/18 07:37 Last Admin: 12/11/18 08:00 Dose: 50 mcg Misoprostol (Cytotec) Confirm Administered Dose 800 mcg .ROUTE .STK-MED ONE Stop: 12/11/18 14:02 Last Admin: 12/11/18 19:02 Dose: Not Given Misoprostol (Cytotec) 800 mcg RECTAL ONETIME ONE Stop: 12/11/18 14:22 Last Admin: 12/11/18 14:20 Dose: 800 mcg Witch Liliane (Tucks) 1 pad TOP ASDIRECTED ONE Stop: 12/11/18 16:42 - Infant Interaction Support Person: - Recovery Exam Fundal Tone: Firm Fundal Level: At Umbilicus Fundal Placement: Midline Lochia Amount: Scant Lochia Color: Rubra/Red Perineum Description: Intact, Minimal Bruising/Swelling Episiotomy/Laceration: Approximated Bladder Status: Voiding - Exam General: Alert, Oriented HEENT: Pupils Equal Neck: Supple Lungs: Clear to Auscultation, Normal Respiratory Effort Cardiovascular: Regular Rate, Regular Rhythm GI/Abdominal Exam: Normal Bowel Sounds, Soft, Non-Tender, No Organomegaly, No Distention, No Abnormal Bruit, No Mass, Pelvis Stable Extremities: Normal Inspection, Normal Range of Motion, Non-Tender, No Pedal Edema, Normal Capillary Refill Skin: Warm, Dry, Intact Neurological: No New Focal Deficit Psy/Mental Status: Alert, Normal Affect, Normal Mood - Problem List & Annotations (1) Elevated BP without diagnosis of hypertension SNOMED Code(s): 624801791 Code(s): R03.0 - ELEVATED BLOOD-PRESSURE READING, W/O DIAGNOSIS OF HTN Status: Acute Current Visit: Yes (2) Post-term , 40-42 weeks of gestation SNOMED Code(s): 64751971402857 Code(s): O48.0 - POST-TERM Status: Acute Current Visit: Yes (3) Elective induction of labor planned SNOMED Code(s): 487039031 Code(s): KKV6261 - Status: Acute Current Visit: No (4) SNOMED Code(s): 68856503 Code(s): Z33.1 - STATE, INCIDENTAL Status: Acute Current Visit: No Qualifiers: Weeks of gestation: 40 weeks (5) hemorrhage SNOMED Code(s): 36261713 Code(s): O72.1 - OTHER IMMEDIATE HEMORRHAGE Status: Acute Current Visit: Yes (6) Precipitous delivery SNOMED Code(s): 296363408, 116545933 Code(s): O62.3 - PRECIPITATE LABOR Status: Acute Current Visit: Yes (7) Meconium in amniotic fluid SNOMED Code(s): 576382670, 362468005 Code(s): P96.83 - MECONIUM STAINING Status: Acute Current Visit: Yes (8) Retained placenta with hemorrhage SNOMED Code(s): 08976648 Code(s): O72.0 - THIRD-STAGE HEMORRHAGE Status: Acute Current Visit: Yes (9) Vaginal delivery SNOMED Code(s): 745119496 Code(s): O80 - ENCOUNTER FOR FULL-TERM UNCOMPLICATED DELIVERY Status: Acute Current Visit: No - Problem List Review Problem List Initiated/Reviewed/Updated: Yes - My Orders Last 24 Hours: My Active Orders 12/11/18 07:36 Patient Status [ADT] Routine May Shower [RC] ASDIRECTED Notify Provider Vital Signs [RC] PRN Up ad Yani [RC] ASDIRECTED Acetaminophen [Tylenol] 650 mg PO Q4H PRN Ondansetron [Zofran] 4 mg IV Q4H PRN Sodium Chloride 0.9% [Saline Flush] 10 ml FLUSH ASDIRECTED PRN Saline Lock Insert [OM.PC] Routine Resuscitation Status Routine 12/11/18 08:25 Naloxone [Narcan] 0.1 mg IVPUSH ASDIRECTED PRN Sodium Chloride 0.9% [Saline Flush] 10 ml FLUSH ASDIRECTED PRN diphenhydrAMINE [Benadryl] 25 mg IVPUSH Q6H PRN diphenhydrAMINE [Benadryl] 50 mg IVPUSH Q6H PRN ePHEDrine [ePHEDrine sulfate] 10 mg IVPUSH ASDIRECTED PRN ePHEDrine [ePHEDrine sulfate] 10 mg IVPUSH ASDIRECTED PRN Epidural Catheter Management [OM.PC] Routine Epidural Catheter Management [OM.PC] Urgent Peripheral IV Insertion Pediatric [OM.PC] Routine 12/11/18 08:30 Insert Urinary Catheter [OM.PC] ASDIRECTED Ropivacaine [Naropin 0.2%] 200 mg Premix Bag 1 bag EPIDUR ASDIRECTED 12/11/18 13:40 Oxytocin/Normal Saline [Pitocin in NS 20 Units/1,000 ML] 20 unit in 1,000 ml IV TITRATE 12/11/18 14:42 Oxytocin/Normal Saline [Pitocin in NS 20 Units/1,000 ML] 20 unit in 1,000 ml IV TITRATE 12/11/18 16:41 Acetaminophen [Tylenol Bulk Bottle] 325 mg PO Q4H PRN Acetaminophen/Codeine [Tylenol with Codeine No.3 300MG/30MG] 1 tab PO Q4H PRN Benzocaine [Qaez-B-Byhaxql 20% [place]] See Dose Instructions TOP Q4H PRN Docusate Sodium [Colace] 100 mg PO BID PRN Ibuprofen [Motrin Bulk Bottle] 600 mg PO Q6H PRN Assess Lochia [WOMSER] Per Unit Routine Assess Uterine Involution [WOMSER] Per Unit Routine 12/11/18 16:42 Patient Status [ADT] Routine Vital Signs [RC] PFP 12/11/18 16:43 Ice Therapy [OM.PC] Per Unit Routine Perineal Care [OM.PC] Per Unit Routine Sitz Bath [OM.PC] Per Unit Routine 12/11/18 17:47 Loperamide [Imodium] 2 mg PO Q4H PRN 12/11/18 Breakfast Regular Diet [DIET] - Assessment Assessment:: 12/11/2018 32 yo at 40 6/7 gestational weeks proceeded to deliver precipitously. Patient had been 1-2/80/-2 at noon and then her membranes ruptured at 1300 and patient was having variable heart tones and was dilating quickly. Patient was placed on left side, provider in the room, O2 applied, bolus started. We then continue to reposition while patient proceeded to change cervix quickly. Do to FHT variables decision was made to call OR team to have them head this direction , after that decision was made patient was complete and instead we had patient push. Two pushes and head was out, nuchal cord times one was reduced easily, due to position of patient did need McRobert's and one round of suprapubic to aid in delivery of shoulders and delivered a viable male infant on 12/11/2018 @ 1333 in ÁNGELA position over and intact perineum. Infant was then cord double clamped and cut and brought to warmer for immediate interventions. Infant on way to warmer began to cry some and with the aide of drying, stimulating, and bulb suction began to cry vigrously. APGARS-5/8, weight-9lbs 0oz, length -21.3 inches. Infant was then placed skin to skin with mother at this time. While assessing mother she then began to have some bleeding and her placenta would not come spontaneously. At this time one dose of IV fentanyl was used for mother for pain control, a second degree perineal laceration was noted so lidocaine was placed while waiting for placenta with plans of repairing after placenta came. Due to retained placenta we decided to use nitrous for pain control. Attempted manual removal times two at this time did have a second IV started, and started hemorrhage protocol. Also gave ancef 2grams IV for prophylaxis, on third attempt at manual removal placenta finally came. EBL- 1000. Laceration noted-second degree, was very swollen, hard to repair due to swelling, also patient had bleeding and had to stop suturing multiple times to assess her bleeding and fundus. Did loose sutures in usual fashion with 3.0 vicryl. Did educate patient that due to swelling may need to reevaluate repair later today or in am and also may need to watch for a hematoma. Did do a thorough inspection of vaginal vault, no lacerations noted of cervix, rectum, or labia. Straight cath done for bleeding for approx 350ml of urine. Mother currently stable in labor and delivery room. Stages- 1st [id number] 2nd [id number] 3rd [id number] 12/11/2018 Patient remains stable Bleeding is decreasing Fundus firm Patient is able to void independently now No dizziness, lightheadedness, or fatigue Hgb 10.6 - Plan Plan:: 12/11/2018 32 yo here at 40 6/7 weeks gestation for induction of labor SVE-1-2/50/-2 Contractions-irregular FHTs category one BP elevated on admission, labs negative, no clonus, DTRS normal Cytotec 50mcg placed vaginally Labs-A positive, Hep B neg, Hep C neg, HIV neg, nonreactive RPR, Rubella Immune , GBS negative, Hgb-12.7, LDH-142, P/C ratio-112.9 Plan- Continue to monitor for active labor Continue to monitor FHTs Pain management per patient request Plan and anticipate a vaginal delivery 12/11/2018 Routine cares Encourage and support Closely monitor fundus, bleeding and urinary output Pain medication per her request Encourage good Perineal care Ice packs routine for perineum hemogram now and CBC in am Leave IV sites in 12/11/2018 Closely monitor fundus, bleeding and urinary output Pain medication per her request Encourage good Perineal care Ice packs routine for perineum CBC in am Leave IV sites in
--- NOTE | 2018-12-12 07:57 | PCM.PNPP ---
- General Info Date of Service: 12/12/18 Functional Status: Reports: Pain Controlled - Review of Systems General: Reports: No Symptoms HEENT: Reports: No Symptoms Pulmonary: Reports: No Symptoms Cardiovascular: Reports: No Symptoms Gastrointestinal: Reports: No Symptoms Genitourinary: Reports: No Symptoms Musculoskeletal: Reports: No Symptoms Skin: Reports: No Symptoms Neurological: Reports: No Symptoms Psychiatric: Reports: No Symptoms - Patient Data Vital Signs - Most Recent: Last Vital Signs Temp 35.8 C 12/12/18 07:26 Pulse 85 12/12/18 07:26 Resp 18 12/12/18 07:26 BP 101/51 L 12/12/18 07:26 Pulse Ox 100 12/12/18 07:26 Weight - Most Recent: 87.997 kg I&O - Last 24 Hours: Intake & Output 12/11/18 12/12/18 12/12/18 22:59 06:59 14:59 Intake Total 4219 Output Total 1825 Balance 2394 Lab Results - Last 24 Hours: Laboratory Results - last 24 hr 12/11/18 12/11/18 12/11/18 Range/Units 07:29 07:32 07:36 WBC (4.5-11.0) K/uL RBC (3.30-5.50) M/uL Hgb (12.0-15.0) g/dL Hct (36.0-48.0) % MCV (80-98) fL MCH (27-31) pg MCHC (32-36) % Plt Count (150-400) K/uL Neut % (Auto) (36-66) % Lymph % (Auto) (24-44) % Tate % (Auto) (2-6) % Eos % (Auto) (2-4) % Baso % (Auto) (0-1) % Sodium 136 L (140-148) mmol/L Potassium 3.6 (3.6-5.2) mmol/L Chloride 102 (100-108) mmol/L Carbon Dioxide 24 (21-32) mmol/L Anion Gap 13.6 (5.0-14.0) mmol/L BUN 11 (7-18) mg/dL Creatinine 0.8 (0.6-1.0) mg/dL Est Cr Clr Drug Dosing TNP Estimated GFR (MDRD) > 60 (>60) Glucose 81 (74-106) mg/dL Calcium 8.5 (8.5-10.1) mg/dL Total Bilirubin 0.3 D (0.2-1.0) mg/dL AST 17 D (15-37) U/L ALT 24 D (12-78) U/L Alkaline Phosphatase 128 H (46-116) U/L Lactate Dehydrogenase 142 (82-234) U/L Total Protein 6.9 (6.4-8.2) g/dL Albumin 2.9 L (3.4-5.0) g/dL Globulin 4.0 H (2.3-3.5) g/dL Albumin/Globulin Ratio 0.7 L (1.2-2.2) Urine Color Yellow (YELLOW) Urine Appearance Slightly cloudy A (CLEAR) Urine pH 7.0 (5.0-8.0) Ur Specific [place] 1.020 (1.008-1.030) Urine Protein Negative (NEGATIVE) mg/dL Urine Glucose (UA) Normal (NEGATIVE) mg/dL Urine Ketones Negative (NEGATIVE) mg/dL Urine Occult Blood Negative (NEGATIVE) Urine Nitrite Negative (NEGATIVE) Urine Bilirubin Negative (NEGATIVE) Urine Urobilinogen 0.2 (0.2-1.0) EU/dL Ur Leukocyte Esterase Negative (NEGATIVE) Urine RBC 0-5 (0-5) Urine WBC 0-5 (0-5) Ur Epithelial Cells Moderate Amorphous Sediment Not seen Urine Bacteria Moderate Urine Mucus Not seen Urine Opiates Screen Negative (NEGATIVE) Ur Oxycodone Screen Negative (NEGATIVE) Urine Methadone Screen Negative (NEGATIVE) Ur Propoxyphene Screen Negative (NEGATIVE) Ur Barbiturates Screen Negative (NEGATIVE) Ur Tricyclics Screen Negative (NEGATIVE) Ur Phencyclidine Scrn Negative (NEGATIVE) Ur Amphetamine Screen Negative (NEGATIVE) U Methamphetamines Scrn Negative (NEGATIVE) Urine MDMA Screen Negative (NEGATIVE) U Benzodiazepines Scrn Negative (NEGATIVE) U Cocaine Metab Screen Negative (NEGATIVE) U Marijuana (THC) Screen Negative (NEGATIVE) Blood Type Gel Antibody Screen 12/11/18 12/11/18 12/11/18 Range/Units 14:40 16:41 20:56 WBC (4.5-11.0) K/uL RBC (3.30-5.50) M/uL Hgb 11.2 L 10.6 L (12.0-15.0) g/dL Hct 34.0 L 31.7 L (36.0-48.0) % MCV (80-98) fL MCH (27-31) pg MCHC (32-36) % Plt Count (150-400) K/uL Neut % (Auto) (36-66) % Lymph % (Auto) (24-44) % Tate % (Auto) (2-6) % Eos % (Auto) (2-4) % Baso % (Auto) (0-1) % Sodium (140-148) mmol/L Potassium (3.6-5.2) mmol/L Chloride (100-108) mmol/L Carbon Dioxide (21-32) mmol/L Anion Gap (5.0-14.0) mmol/L BUN (7-18) mg/dL Creatinine (0.6-1.0) mg/dL Est Cr Clr Drug Dosing Estimated GFR (MDRD) (>60) Glucose (74-106) mg/dL Calcium (8.5-10.1) mg/dL Total Bilirubin (0.2-1.0) mg/dL AST (15-37) U/L ALT (12-78) U/L Alkaline Phosphatase (46-116) U/L Lactate Dehydrogenase (82-234) U/L Total Protein (6.4-8.2) g/dL Albumin (3.4-5.0) g/dL Globulin (2.3-3.5) g/dL Albumin/Globulin Ratio (1.2-2.2) Urine Color (YELLOW) Urine Appearance (CLEAR) Urine pH (5.0-8.0) Ur Specific [place] (1.008-1.030) Urine Protein (NEGATIVE) mg/dL Urine Glucose (UA) (NEGATIVE) mg/dL Urine Ketones (NEGATIVE) mg/dL Urine Occult Blood (NEGATIVE) Urine Nitrite (NEGATIVE) Urine Bilirubin (NEGATIVE) Urine Urobilinogen (0.2-1.0) EU/dL Ur Leukocyte Esterase (NEGATIVE) Urine RBC (0-5) Urine WBC (0-5) Ur Epithelial Cells Amorphous Sediment Urine Bacteria Urine Mucus Urine Opiates Screen (NEGATIVE) Ur Oxycodone Screen (NEGATIVE) Urine Methadone Screen (NEGATIVE) Ur Propoxyphene Screen (NEGATIVE) Ur Barbiturates Screen (NEGATIVE) Ur Tricyclics Screen (NEGATIVE) Ur Phencyclidine Scrn (NEGATIVE) Ur Amphetamine Screen (NEGATIVE) U Methamphetamines Scrn (NEGATIVE) Urine MDMA Screen (NEGATIVE) U Benzodiazepines Scrn (NEGATIVE) U Cocaine Metab Screen (NEGATIVE) U Marijuana (THC) Screen (NEGATIVE) Blood Type A POSITIVE Gel Antibody Screen Negative 12/12/18 Range/Units 05:47 WBC 15.6 H (4.5-11.0) K/uL RBC 3.12 L (3.30-5.50) M/uL Hgb 9.2 L (12.0-15.0) g/dL Hct 28.2 L (36.0-48.0) % MCV 90 (80-98) fL MCH 30 (27-31) pg MCHC 33 (32-36) % Plt Count 139 L (150-400) K/uL Neut % (Auto) 76 H (36-66) % Lymph % (Auto) 12 L (24-44) % Tate % (Auto) 12 H (2-6) % Eos % (Auto) 1 L (2-4) % Baso % (Auto) 0 (0-1) % Sodium (140-148) mmol/L Potassium (3.6-5.2) mmol/L Chloride (100-108) mmol/L Carbon Dioxide (21-32) mmol/L Anion Gap (5.0-14.0) mmol/L BUN (7-18) mg/dL Creatinine (0.6-1.0) mg/dL Est Cr Clr Drug Dosing Estimated GFR (MDRD) (>60) Glucose (74-106) mg/dL Calcium (8.5-10.1) mg/dL Total Bilirubin (0.2-1.0) mg/dL AST (15-37) U/L ALT (12-78) U/L Alkaline Phosphatase (46-116) U/L Lactate Dehydrogenase (82-234) U/L Total Protein (6.4-8.2) g/dL Albumin (3.4-5.0) g/dL Globulin (2.3-3.5) g/dL Albumin/Globulin Ratio (1.2-2.2) Urine Color (YELLOW) Urine Appearance (CLEAR) Urine pH (5.0-8.0) Ur Specific [place] (1.008-1.030) Urine Protein (NEGATIVE) mg/dL Urine Glucose (UA) (NEGATIVE) mg/dL Urine Ketones (NEGATIVE) mg/dL Urine Occult Blood (NEGATIVE) Urine Nitrite (NEGATIVE) Urine Bilirubin (NEGATIVE) Urine Urobilinogen (0.2-1.0) EU/dL Ur Leukocyte Esterase (NEGATIVE) Urine RBC (0-5) Urine WBC (0-5) Ur Epithelial Cells Amorphous Sediment Urine Bacteria Urine Mucus Urine Opiates Screen (NEGATIVE) Ur Oxycodone Screen (NEGATIVE) Urine Methadone Screen (NEGATIVE) Ur Propoxyphene Screen (NEGATIVE) Ur Barbiturates Screen (NEGATIVE) Ur Tricyclics Screen (NEGATIVE) Ur Phencyclidine Scrn (NEGATIVE) Ur Amphetamine Screen (NEGATIVE) U Methamphetamines Scrn (NEGATIVE) Urine MDMA Screen (NEGATIVE) U Benzodiazepines Scrn (NEGATIVE) U Cocaine Metab Screen (NEGATIVE) U Marijuana (THC) Screen (NEGATIVE) Blood Type Gel Antibody Screen Med Orders - Current: Current Medications Acetaminophen (Tylenol) 650 mg PO Q4H PRN PRN Reason: Pain (Mild 1-3) and fever Acetaminophen (Tylenol Bulk Bottle) 325 mg PO Q4H PRN PRN Reason: Pain Last Admin: 12/11/18 19:59 Dose: 1 bottle Acetaminophen/Codeine Phosphate (Tylenol With Codeine No.3 300mg/30mg) 1 tab PO Q4H PRN PRN Reason: Pain (moderate 4-6) Last Admin: 12/11/18 19:25 Dose: 1 tab Benzocaine (Dyma-V-Tgimraf 20% [place]) 0 gm TOP Q4H PRN PRN Reason: ITCHY/BURNY Last Admin: 12/11/18 21:10 Dose: 1 bottle Diphenhydramine HCl (Benadryl) 25 mg IVPUSH Q6H PRN PRN Reason: Itching Diphenhydramine HCl (Benadryl) 50 mg IVPUSH Q6H PRN PRN Reason: Itching Docusate Sodium (Colace) 100 mg PO BID PRN PRN Reason: Constipation Ephedrine Sulfate (Ephedrine Sulfate) 10 mg IVPUSH ASDIRECTED PRN PRN Reason: Hypotension Ephedrine Sulfate (Ephedrine Sulfate) 10 mg IVPUSH ASDIRECTED PRN PRN Reason: Hypotension Ropivacaine 200 mg/ Premix 100 mls @ 0 mls/hr EPIDUR ASDIRECTED MELVIN Oxytocin/Sodium Chloride (Pitocin In Ns 20 Units/1,000 Ml) 20 unit in 1,000 mls @ 999 mls/hr IV TITRATE MELVIN; Protocol Last Admin: 12/11/18 13:40 Dose: 999 mls/hr, 999 mls/hr Oxytocin/Sodium Chloride (Pitocin In Ns 20 Units/1,000 Ml) 20 unit in 1,000 mls @ 999 mls/hr IV TITRATE MELVIN; Protocol Last Titration: 12/11/18 15:10 Dose: 125 mls/hr, 125 mls/hr Ibuprofen (Motrin Bulk Bottle) 600 mg PO Q6H PRN PRN Reason: Pain Last Admin: 12/11/18 19:54 Dose: 1 bottle Loperamide HCl (Imodium) 2 mg PO Q4H PRN PRN Reason: Diarrhea Last Admin: 12/11/18 19:24 Dose: 2 mg Naloxone HCl (Narcan) 0.1 mg IVPUSH ASDIRECTED PRN PRN Reason: Oversedation Ondansetron HCl (Zofran) 4 mg IV Q4H PRN PRN Reason: Nausea/Vomiting Sodium Chloride (Saline Flush) 10 ml FLUSH ASDIRECTED PRN PRN Reason: Keep Vein Open Sodium Chloride (Saline Flush) 10 ml FLUSH ASDIRECTED PRN PRN Reason: Keep Vein Open Discontinued Medications Carboprost Tromethamine (Hemabate Ds) Confirm Administered Dose 250 mcg .ROUTE .STK-MED ONE Stop: 12/11/18 14:02 Last Admin: 12/11/18 19:02 Dose: Not Given Carboprost Tromethamine (Hemabate Ds) 250 mcg IM ONETIME ONE Stop: 12/11/18 14:53 Last Admin: 12/11/18 14:52 Dose: 250 mcg Emollient Ointment (Lansinoh Hpa) 1 gm TOP ASDIRECTED ONE Stop: 12/11/18 16:42 Fentanyl (Sublimaze) Confirm Administered Dose 100 mcg .ROUTE .STK-MED ONE Stop: 12/11/18 13:41 Last Admin: 12/11/18 18:34 Dose: Not Given Fentanyl (Sublimaze) 50 mcg IVPUSH ONETIME ONE Stop: 12/11/18 13:45 Last Admin: 12/11/18 13:40 Dose: 50 mcg Lactated Ringer's (Ringers, Lactated) 1,000 mls @ 999 mls/hr IV .BOLUS ONE Stop: 12/11/18 09:25 Last Admin: 12/11/18 12:30 Dose: 999 mls/hr Oxytocin/Sodium Chloride (Pitocin In Ns 20 Units/1,000 Ml) Confirm Administered Dose 20 unit in 1,000 mls @ as directed .ROUTE .STK-MED ONE Stop: 12/11/18 13:40 Last Admin: 12/11/18 19:02 Dose: Not Given Cefazolin Sodium/Dextrose 2 gm (/ Premix) 50 mls @ 100 mls/hr IV ONETIME ONE Stop: 12/11/18 14:34 Last Admin: 12/11/18 14:13 Dose: 100 mls/hr Oxytocin/Sodium Chloride (Pitocin In Ns 20 Units/1,000 Ml) Confirm Administered Dose 20 unit in 1,000 mls @ as directed .ROUTE .STK-MED ONE Stop: 12/11/18 14:33 Last Admin: 12/11/18 18:56 Dose: Not Given Lidocaine HCl (Xylocaine 1%) Confirm Administered Dose 50 ml .ROUTE .STK-MED ONE Stop: 12/11/18 13:39 Last Admin: 12/11/18 18:50 Dose: Not Given Lidocaine HCl (Xylocaine 1%) 50 ml INJECT ONETIME ONE Stop: 12/11/18 13:39 Last Admin: 12/11/18 13:38 Dose: 50 ml Methylergonovine Maleate (Methergine) Confirm Administered Dose 0.2 mg .ROUTE .STK-MED ONE Stop: 12/11/18 14:02 Last Admin: 12/11/18 19:02 Dose: Not Given Methylergonovine Maleate (Methergine) 0.2 mg IM ONETIME ONE Stop: 12/11/18 14:22 Last Admin: 12/11/18 14:21 Dose: 0.2 mg Misoprostol (Cytotec) 50 mcg VAG ONETIME ONE Stop: 12/11/18 07:37 Last Admin: 12/11/18 08:00 Dose: 50 mcg Misoprostol (Cytotec) Confirm Administered Dose 800 mcg .ROUTE .STK-MED ONE Stop: 12/11/18 14:02 Last Admin: 12/11/18 19:02 Dose: Not Given Misoprostol (Cytotec) 800 mcg RECTAL ONETIME ONE Stop: 12/11/18 14:22 Last Admin: 12/11/18 14:20 Dose: 800 mcg Witch Liliane (Tucks) 1 pad TOP ASDIRECTED ONE Stop: 12/11/18 16:42 - Interaction Infant Disposition, : [place] in Room with Family Infant Interaction: Holding Infant Feeding: Breastfed Infant; Nursed Well Support Person: - Recovery Exam Fundal Tone: Firm Fundal Level: At Umbilicus Fundal Placement: Midline Lochia Amount: Scant Lochia Color: Rubra/Red Perineum Description: Intact, Minimal Bruising/Swelling, Other (see below) Other Perinuem Description: swelling noted, no hematoma signs on digital exam Episiotomy/Laceration: Approximated Bladder Status: Voiding - Exam General: Alert, Oriented HEENT: Pupils Equal Neck: Supple Lungs: Clear to Auscultation, Normal Respiratory Effort Cardiovascular: Regular Rate, Regular Rhythm GI/Abdominal Exam: Normal Bowel Sounds, Soft, Non-Tender, No Organomegaly, No Distention, No Abnormal Bruit, No Mass, Pelvis Stable Extremities: Normal Inspection, Normal Range of Motion, Non-Tender, No Pedal Edema, Normal Capillary Refill Skin: Warm, Dry, Intact Neurological: No New Focal Deficit Psy/Mental Status: Alert, Normal Affect, Normal Mood - Problem List & Annotations (1) Elevated BP without diagnosis of hypertension SNOMED Code(s): 252073832 Code(s): R03.0 - ELEVATED BLOOD-PRESSURE READING, W/O DIAGNOSIS OF HTN Status: Acute Current Visit: Yes (2) Post-term , 40-42 weeks of gestation SNOMED Code(s): 25070137911664 Code(s): O48.0 - POST-TERM Status: Acute Current Visit: Yes (3) Elective induction of labor planned SNOMED Code(s): 806850479 Code(s): VWV9964 - Status: Acute Current Visit: No (4) SNOMED Code(s): 30724662 Code(s): Z33.1 - STATE, INCIDENTAL Status: Acute Current Visit: No Qualifiers: Weeks of gestation: 40 weeks (5) hemorrhage SNOMED Code(s): 99456715 Code(s): O72.1 - OTHER IMMEDIATE HEMORRHAGE Status: Acute Current Visit: Yes (6) Precipitous delivery SNOMED Code(s): 721145382, 110785828 Code(s): O62.3 - PRECIPITATE LABOR Status: Acute Current Visit: Yes (7) Meconium in amniotic fluid SNOMED Code(s): 092114153, 195183919 Code(s): P96.83 - MECONIUM STAINING Status: Acute Current Visit: Yes (8) Retained placenta with hemorrhage SNOMED Code(s): 78794404 Code(s): O72.0 - THIRD-STAGE HEMORRHAGE Status: Acute Current Visit: Yes (9) Vaginal delivery SNOMED Code(s): 260689742 Code(s): O80 - ENCOUNTER FOR FULL-TERM UNCOMPLICATED DELIVERY Status: Acute Current Visit: No - Problem List Review Problem List Initiated/Reviewed/Updated: Yes - My Orders Last 24 Hours: My Active Orders 12/11/18 07:36 Patient Status [ADT] Routine May Shower [RC] ASDIRECTED Notify Provider Vital Signs [RC] PRN Up ad Yani [RC] ASDIRECTED Acetaminophen [Tylenol] 650 mg PO Q4H PRN Ondansetron [Zofran] 4 mg IV Q4H PRN Sodium Chloride 0.9% [Saline Flush] 10 ml FLUSH ASDIRECTED PRN Saline Lock Insert [OM.PC] Routine Resuscitation Status Routine 12/11/18 08:25 Naloxone [Narcan] 0.1 mg IVPUSH ASDIRECTED PRN Sodium Chloride 0.9% [Saline Flush] 10 ml FLUSH ASDIRECTED PRN diphenhydrAMINE [Benadryl] 25 mg IVPUSH Q6H PRN diphenhydrAMINE [Benadryl] 50 mg IVPUSH Q6H PRN ePHEDrine [ePHEDrine sulfate] 10 mg IVPUSH ASDIRECTED PRN ePHEDrine [ePHEDrine sulfate] 10 mg IVPUSH ASDIRECTED PRN Epidural Catheter Management [OM.PC] Routine Epidural Catheter Management [OM.PC] Urgent Peripheral IV Insertion Pediatric [OM.PC] Routine 12/11/18 08:30 Insert Urinary Catheter [OM.PC] ASDIRECTED Ropivacaine [Naropin 0.2%] 200 mg Premix Bag 1 bag EPIDUR ASDIRECTED 12/11/18 13:40 Oxytocin/Normal Saline [Pitocin in NS 20 Units/1,000 ML] 20 unit in 1,000 ml IV TITRATE 12/11/18 14:42 Oxytocin/Normal Saline [Pitocin in NS 20 Units/1,000 ML] 20 unit in 1,000 ml IV TITRATE 12/11/18 16:41 Acetaminophen [Tylenol Bulk Bottle] 325 mg PO Q4H PRN Acetaminophen/Codeine [Tylenol with Codeine No.3 300MG/30MG] 1 tab PO Q4H PRN Benzocaine [Bent-G-Yslbclu 20% [place]] See Dose Instructions TOP Q4H PRN Docusate Sodium [Colace] 100 mg PO BID PRN Ibuprofen [Motrin Bulk Bottle] 600 mg PO Q6H PRN Assess Lochia [WOMSER] Per Unit Routine Assess Uterine Involution [WOMSER] Per Unit Routine 12/11/18 16:42 Patient Status [ADT] Routine Vital Signs [RC] PFP 12/11/18 16:43 Ice Therapy [OM.PC] Per Unit Routine Perineal Care [OM.PC] Per Unit Routine Sitz Bath [OM.PC] Per Unit Routine 12/11/18 17:47 Loperamide [Imodium] 2 mg PO Q4H PRN 12/11/18 Breakfast Regular Diet [DIET] - Assessment Assessment:: 12/11/2018 32 yo at 40 6/7 gestational weeks proceeded to deliver precipitously. Patient had been 1-2/80/-2 at noon and then her membranes ruptured at 1300 and patient was having variable heart tones and was dilating quickly. Patient was placed on left side, provider in the room, O2 applied, bolus started. We then continue to reposition while patient proceeded to change cervix quickly. Do to FHT variables decision was made to call OR team to have them head this direction , after that decision was made patient was complete and instead we had patient push. Two pushes and head was out, nuchal cord times one was reduced easily, due to position of patient did need McRobert's and one round of suprapubic to aid in delivery of shoulders and delivered a viable male infant on 12/11/2018 @ 1333 in [place] position over and intact perineum. Infant was then cord double clamped and cut and brought to warmer for immediate interventions. on way to warmer began to cry some and with the aide of drying, stimulating, and bulb suction began to cry vigrously. APGARS-5/8, weight-9lbs 0oz, length -21.3 inches. Infant was then placed skin to skin with mother at this time. While assessing mother she then began to have some bleeding and her placenta would not come spontaneously. At this time one dose of IV fentanyl was used for mother for pain control, a second degree perineal laceration was noted so lidocaine was placed while waiting for placenta with plans of repairing after placenta came. Due to retained placenta we decided to use nitrous for pain control. Attempted manual removal times two at this time did have a second IV started, and started hemorrhage protocol. Also gave ancef 2grams IV for prophylaxis, on third attempt at manual removal placenta finally came. EBL- 1000. Laceration noted-second degree, was very swollen, hard to repair due to swelling, also patient had bleeding and had to stop suturing multiple times to assess her bleeding and fundus. Did loose sutures in usual fashion with 3.0 vicryl. Did educate patient that due to swelling may need to reevaluate repair later today or in am and also may need to watch for a hematoma. Did do a thorough inspection of vaginal vault, no lacerations noted of cervix, rectum, or labia. Straight cath done for bleeding for approx 350ml of urine. Mother currently stable in labor and delivery room. Stages- 1st [id number] 2nd [id number] 3rd [id number] 12/11/2018 Patient remains stable Bleeding is decreasing Fundus firm Patient is able to void independently now No dizziness, lightheadedness, or fatigue Hgb 10.6 12/12/2018 Precipitous delivery Day One Fundus firm and bleeding decreasing Hgb today is 9.2, will restart her iron Voiding and stooling pain well controlled with oral pain medication fair - Plan Plan:: 12/11/2018 32 yo here at 40 6/7 weeks gestation for induction of labor SVE-1-2/50/-2 Contractions-irregular FHTs category one BP elevated on admission, labs negative, no clonus, DTRS normal Cytotec 50mcg placed vaginally Labs-A positive, Hep B neg, Hep C neg, HIV neg, nonreactive RPR, Rubella Immune , GBS negative, Hgb-12.7, LDH-142, P/C ratio-112.9 Plan- Continue to monitor for active labor Continue to monitor FHTs Pain management per patient request Plan and anticipate a vaginal delivery 12/11/2018 Routine cares Encourage and support Closely monitor fundus, bleeding and urinary output Pain medication per her request Encourage good Perineal care Ice packs routine for perineum hemogram now and CBC in am Leave IV sites in 12/11/2018 Closely monitor fundus, bleeding and urinary output Pain medication per her request Encourage good Perineal care Ice packs routine for perineum CBC in am Leave IV sites in 12/12/2018 Continue routine cares Continue to encourage and support Closely monitor fundus, bleeding and urinary output Pain medication per her request Encourage good Perineal care Ice packs routine for perineum Leave one IV sit in Will repeat CBC if symptomatic otherwise on discharge day Will start oral Iron BID Plan discharge home at 48-72 hours post delivery
[2018-12-12] MEDS: Ferrous Sulfate 325 MG Tab PO SCH ×2 (09:52→17:06)
[2018-12-12] MEDS ORDERED: Witch Hazel Medicated Pads 100/Jar TOP ONE (10:00)
[2018-12-12] MEDS ORDERED: Witch Hazel Medicated Pads 100/Jar TOP SCH (10:00)
[2018-12-12] MEDS ORDERED: Lanolin 100% Cream 40 GM Tube TOP SCH (10:00)
[2018-12-12] MEDS ORDERED: Lanolin 100% Cream 40 GM Tube TOP ONE (10:00)
[2018-12-13] MEDS: Ferrous Sulfate 325 MG Tab PO SCH (09:17)
--- NOTE | 2018-12-13 09:31 | PCM.PNPP ---
- General Info Date of Service: 12/13/18 Functional Status: Reports: Pain Controlled - Review of Systems General: Reports: No Symptoms HEENT: Reports: No Symptoms Pulmonary: Reports: No Symptoms Cardiovascular: Reports: No Symptoms Gastrointestinal: Reports: No Symptoms Genitourinary: Reports: No Symptoms Musculoskeletal: Reports: No Symptoms Skin: Reports: No Symptoms Neurological: Reports: No Symptoms Psychiatric: Reports: No Symptoms - General Info Date of Service: 12/13/18 - Patient Data Vital Signs - Most Recent: Last Vital Signs Temp 36.6 C 12/13/18 07:30 Pulse 73 12/13/18 07:30 Resp 16 12/13/18 07:30 BP 118/60 12/13/18 07:30 Pulse Ox 99 12/13/18 07:30 Weight - Most Recent: 87.997 kg I&O - Last 24 Hours: Intake & Output 12/12/18 12/13/18 12/13/18 22:59 06:59 14:59 Intake Total 3000 240 Balance 3000 240 Med Orders - Current: Current Medications Acetaminophen (Tylenol) 650 mg PO Q4H PRN PRN Reason: Pain (Mild 1-3) and fever Acetaminophen (Tylenol Bulk Bottle) 325 mg PO Q4H PRN PRN Reason: Pain Last Admin: 12/11/18 19:59 Dose: 1 bottle Acetaminophen/Codeine Phosphate (Tylenol With Codeine No.3 300mg/30mg) 1 tab PO Q4H PRN PRN Reason: Pain (moderate 4-6) Last Admin: 12/11/18 19:25 Dose: 1 tab Benzocaine ([id number]-[id number] 20% [place]) 0 gm TOP Q4H PRN PRN Reason: ITCHY/BURNY Last Admin: 12/11/18 21:10 Dose: 1 bottle Diphenhydramine HCl (Benadryl) 25 mg IVPUSH Q6H PRN PRN Reason: Itching Diphenhydramine HCl (Benadryl) 50 mg IVPUSH Q6H PRN PRN Reason: Itching Docusate Sodium (Colace) 100 mg PO BID PRN PRN Reason: Constipation Emollient Ointment (Lansinoh Hpa) 0 gm TOP ASDIRECTED MELVIN Last Admin: 12/12/18 09:53 Dose: 1 applic Ephedrine Sulfate (Ephedrine Sulfate) 10 mg IVPUSH ASDIRECTED PRN PRN Reason: Hypotension Ephedrine Sulfate (Ephedrine Sulfate) 10 mg IVPUSH ASDIRECTED PRN PRN Reason: Hypotension Ferrous Sulfate (Ferrous Sulfate) 325 mg PO BIDMEALS [facility] Last Admin: 12/13/18 09:17 Dose: 325 mg Ropivacaine 200 mg/ Premix 100 mls @ 0 mls/hr EPIDUR ASDIRECTED MELVIN Oxytocin/Sodium Chloride (Pitocin In Ns 20 Units/1,000 Ml) 20 unit in 1,000 mls @ 999 mls/hr IV TITRATE [facility]; Protocol Last Admin: 12/11/18 13:40 Dose: 999 mls/hr, 999 mls/hr Oxytocin/Sodium Chloride (Pitocin In Ns 20 Units/1,000 Ml) 20 unit in 1,000 mls @ 999 mls/hr IV T[facility]RATE [facility]; Protocol Last Titration: 12/11/18 15:10 Dose: 125 mls/hr, 125 mls/hr Ibuprofen (Motrin Bulk Bottle) 600 mg PO Q6H PRN PRN Reason: Pain Last Admin: 12/11/18 19:54 Dose: 1 bottle Loperamide HCl (Imodium) 2 mg PO Q4H PRN PRN Reason: Diarrhea Last Admin: 12/11/18 19:24 Dose: 2 mg Naloxone HCl (Narcan) 0.1 mg IVPUSH ASDIRECTED PRN PRN Reason: Oversedation Ondansetron HCl (Zofran) 4 mg IV Q4H PRN PRN Reason: Nausea/Vomiting Sodium Chloride (Saline Flush) 10 ml FLUSH ASDIRECTED PRN PRN Reason: Keep Vein Open Sodium Chloride (Saline Flush) 10 ml FLUSH ASDIRECTED PRN PRN Reason: Keep Vein Open Witch Liliane (Tucks) 1 pad TOP ASDIRECTED [facility] Last Admin: 12/12/18 09:53 Dose: 1 pad Discontinued Medications Carboprost Tromethamine (Hemabate Ds) Confirm Administered Dose 250 mcg .ROUTE .STK-MED ONE Stop: 12/11/18 14:02 Last Admin: 12/11/18 19:02 Dose: Not Given Carboprost Tromethamine (Hemabate Ds) 250 mcg IM ONETIME ONE Stop: 12/11/18 14:53 Last Admin: 12/11/18 14:52 Dose: 250 mcg Emollient Ointment (Lansinoh Hpa) 1 gm TOP ASDIRECTED ONE Stop: 12/11/18 16:42 Last Admin: 12/12/18 13:04 Dose: Not Given Emollient Ointment (Lansinoh Hpa) 0 gm TOP ASDIRECTED ONE Stop: 12/12/18 10:01 Fentanyl (Sublimaze) Confirm Administered Dose 100 mcg .ROUTE .STK-MED ONE Stop: 12/11/18 13:41 Last Admin: 12/11/18 18:34 Dose: Not Given Fentanyl (Sublimaze) 50 mcg IVPUSH ONETIME ONE Stop: 12/11/18 13:45 Last Admin: 12/11/18 13:40 Dose: 50 mcg Lactated Ringer's (Ringers, Lactated) 1,000 mls @ 999 mls/hr IV .BOLUS ONE Stop: 12/11/18 09:25 Last Admin: 12/11/18 12:30 Dose: 999 mls/hr Oxytocin/Sodium Chloride (Pitocin In Ns 20 Units/1,000 Ml) Confirm Administered Dose 20 unit in 1,000 mls @ as directed .ROUTE .STK-MED ONE Stop: 12/11/18 13:40 Last Admin: 12/11/18 19:02 Dose: Not Given Cefazolin Sodium/Dextrose 2 gm (/ Premix) 50 mls @ 100 mls/hr IV ONETIME ONE Stop: 12/11/18 14:34 Last Admin: 12/11/18 14:13 Dose: 100 mls/hr Oxytocin/Sodium Chloride (Pitocin In Ns 20 Units/1,000 Ml) Confirm Administered Dose 20 unit in 1,000 mls @ as directed .ROUTE .STK-MED ONE Stop: 12/11/18 14:33 Last Admin: 12/11/18 18:56 Dose: Not Given Lidocaine HCl (Xylocaine 1%) Confirm Administered Dose 50 ml .ROUTE .STK-MED ONE Stop: 12/11/18 13:39 Last Admin: 12/11/18 18:50 Dose: Not Given Lidocaine HCl (Xylocaine 1%) 50 ml INJECT ONETIME ONE Stop: 12/11/18 13:39 Last Admin: 12/11/18 13:38 Dose: 50 ml Methylergonovine Maleate (Methergine) Confirm Administered Dose 0.2 mg .ROUTE .STK-MED ONE Stop: 12/11/18 14:02 Last Admin: 12/11/18 19:02 Dose: Not Given Methylergonovine Maleate (Methergine) 0.2 mg IM ONETIME ONE Stop: 12/11/18 14:22 Last Admin: 12/11/18 14:21 Dose: 0.2 mg Misoprostol (Cytotec) 50 mcg VAG ONETIME ONE Stop: 12/11/18 07:37 Last Admin: 12/11/18 08:00 Dose: 50 mcg Misoprostol (Cytotec) Confirm Administered Dose 800 mcg .ROUTE .STK-MED ONE Stop: 12/11/18 14:02 Last Admin: 12/11/18 19:02 Dose: Not Given Misoprostol (Cytotec) 800 mcg RECTAL ONETIME ONE Stop: 12/11/18 14:22 Last Admin: 12/11/18 14:20 Dose: 800 mcg Witch Liliane (Tucks) 1 pad TOP ASDIRECTED ONE Stop: 12/11/18 16:42 Last Admin: 12/12/18 13:05 Dose: Not Given Witch Liliane (Tucks) 1 pad TOP ASDIRECTED ONE Stop: 12/12/18 10:01 - Interaction Infant Disposition, : in Room with Family Interaction: Holding Infant Infant Feeding: Breastfed Infant; Nursed Well Support Person: - Recovery Exam Fundal Tone: Firm Fundal Level: 2 Fingerbreadths Below Umbilicus Fundal Placement: Midline Lochia Amount: Small Lochia Color: Rubra/Red Perineum Description: Redness, Edematous, Other (see below) Other Perinuem Description: swelling noted, no hematoma signs on digital exam Episiotomy/Laceration: Approximated Bladder Status: Voiding Urinary Elimination: Voided - Exam General: Alert, Oriented HEENT: Pupils Equal Neck: Supple Lungs: Clear to Auscultation, Normal Respiratory Effort Cardiovascular: Regular Rate, Regular Rhythm GI/Abdominal Exam: Normal Bowel Sounds, Soft, Non-Tender, No Organomegaly, No Distention, No Abnormal Bruit, No Mass, Pelvis Stable Extremities: Normal Inspection, Normal Range of Motion, Non-Tender, No Pedal Edema, Normal Capillary Refill Skin: Warm, Dry, Intact Neurological: No New Focal Deficit Psy/Mental Status: Alert, Normal Affect, Normal Mood - Problem List & Annotations (1) Elevated BP without diagnosis of hypertension SNOMED Code(s): 740536266 Code(s): R03.0 - ELEVATED BLOOD-PRESSURE READING, W/O DIAGNOSIS OF HTN Status: Acute Current Visit: Yes (2) Post-term , 40-42 weeks of gestation SNOMED Code(s): 31130752306544 Code(s): O48.0 - POST-TERM Status: Acute Current Visit: Yes (3) Elective induction of labor planned SNOMED Code(s): 771362945 Code(s): OEJ0584 - Status: Acute Current Visit: No (4) SNOMED Code(s): 08897697 Code(s): Z33.1 - STATE, INCIDENTAL Status: Acute Current Visit: No Qualifiers: Weeks of gestation: 40 weeks (5) hemorrhage SNOMED Code(s): 62000235 Code(s): O72.1 - OTHER IMMEDIATE HEMORRHAGE Status: Acute Current Visit: Yes (6) Precipitous delivery SNOMED Code(s): 710323664, 114944556 Code(s): O62.3 - PRECIPITATE LABOR Status: Acute Current Visit: Yes (7) Meconium in amniotic fluid SNOMED Code(s): 044509161, 288295686 Code(s): P96.83 - MECONIUM STAINING Status: Acute Current Visit: Yes (8) Retained placenta with hemorrhage SNOMED Code(s): 64713257 Code(s): O72.0 - THIRD-STAGE HEMORRHAGE Status: Acute Current Visit: Yes (9) Vaginal delivery SNOMED Code(s): 637120516 Code(s): O80 - ENCOUNTER FOR FULL-TERM UNCOMPLICATED DELIVERY Status: Acute Current Visit: No - Problem List Review Problem List Initiated/Reviewed/Updated: Yes - My Orders Last 24 Hours: My Active Orders 12/12/18 09:00 Ferrous Sulfate 325 mg PO BIDMEALS 12/12/18 10:00 Lanolin [Lansinoh HPA] 0 gm TOP ASDIRECTED Witch Liliane [Tucks] 1 pad TOP ASDIRECTED - Assessment Assessment:: 12/11/2018 32 yo at 40 6/7 gestational weeks proceeded to deliver precipitously. Patient had been 1-2/80/-2 at noon and then her membranes ruptured at 1300 and patient was having variable heart tones and was dilating quickly. Patient was placed on left side, provider in the room, O2 applied, bolus started. We then continue to reposition while patient proceeded to change cervix quickly. Do to FHT variables decision was made to call OR team to have them head this direction , after that decision was made patient was complete and instead we had patient push. Two pushes and head was out, nuchal cord times one was reduced easily, due to position of patient did need McRobert's and one round of suprapubic to aid in delivery of shoulders and delivered a viable male infant on 12/11/2018 @ 1333 in [place] position over and intact perineum. Infant was then cord double clamped and cut and brought to warmer for immediate interventions. Infant on way to warmer began to cry some and with the aide of drying, stimulating, and bulb suction infant began to cry vigrously. APGARS-5/8, weight-9lbs 0oz, length -21.3 inches. was then placed skin to skin with mother at this time. While assessing mother she then began to have some bleeding and her placenta would not come spontaneously. At this time one dose of IV fentanyl was used for mother for pain control, a second degree perineal laceration was noted so lidocaine was placed while waiting for placenta with plans of repairing after placenta came. Due to retained placenta we decided to use nitrous for pain control. Attempted manual removal times two at this time did have a second IV started, and started hemorrhage protocol. Also gave ancef 2grams IV for prophylaxis, on third attempt at manual removal placenta finally came. EBL- 1000. Laceration noted-second degree, was very swollen, hard to repair due to swelling, also patient had bleeding and had to stop suturing multiple times to assess her bleeding and fundus. Did loose sutures in usual fashion with 3.0 vicryl. Did educate patient that due to swelling may need to reevaluate repair later today or in am and also may need to watch for a hematoma. Did do a thorough inspection of vaginal vault, no lacerations noted of cervix, rectum, or labia. Straight cath done for bleeding for approx 350ml of urine. Mother currently stable in labor and delivery room. Stages- 1st [id number] 2nd [id number] 3rd [id number] 12/11/2018 Patient remains stable Bleeding is decreasing Fundus firm Patient is able to void independently now No dizziness, lightheadedness, or fatigue Hgb 10.6 12/12/2018 Precipitous delivery Day One Fundus firm and bleeding decreasing Hgb today is 9.2, will restart her iron Voiding and stooling pain well controlled with oral pain medication fair 12/13/2018 Precipitous delivery Day Two Fundus firm and bleeding decreasing Voiding and stooling pain well controlled with oral pain medication well Perineum healing, still bruising noted, minimal swelling today - Plan Plan:: 12/11/2018 32 yo here at 40 6/7 weeks gestation for induction of labor SVE-1-2/50/-2 Contractions-irregular FHTs category one BP elevated on admission, labs negative, no clonus, DTRS normal Cytotec 50mcg placed vaginally Labs-A positive, Hep B neg, Hep C neg, HIV neg, nonreactive RPR, Rubella Immune , GBS negative, Hgb-12.7, LDH-142, P/C ratio-112.9 Plan- Continue to monitor for active labor Continue to monitor FHTs Pain management per patient request Plan and anticipate a vaginal delivery 12/11/2018 Routine cares Encourage and support Closely monitor fundus, bleeding and urinary output Pain medication per her request Encourage good Perineal care Ice packs routine for perineum hemogram now and CBC in am Leave IV sites in 12/11/2018 Closely monitor fundus, bleeding and urinary output Pain medication per her request Encourage good Perineal care Ice packs routine for perineum CBC in am Leave IV sites in 12/12/2018 Continue routine cares Continue to encourage and support Closely monitor fundus, bleeding and urinary output Pain medication per her request Encourage good Perineal care Ice packs routine for perineum Leave one IV sit in Will repeat CBC if symptomatic otherwise on discharge day Will start oral Iron BID Plan discharge home at 48-72 hours post delivery 12/13/2018 Continue routine cares Continue to encourage and support Closely monitor fundus, bleeding and urinary output Pain medication per her request Encourage good Perineal care Ice packs routine for perineum IV can be D/C Continue oral Iron BID Plan discharge home today per mothers request Will see me in six weeks for exam Educate on signs and symptoms of infection before discharge
[2018-12-13 11:02] VITALS: BP 122/64; PULSE 84
== END 2018-12-13 13:45 | disposition home or self-care (01) | DRG 807 ==
LOC: JP.OB 07:07 → JP.MS 09:18 → JP.OB 09:20 → OBSVTOIN 13:33 → JP.MS 16:55
PROVIDERS: ADMIT Advanced Practice Midwife; ATTEND Advanced Practice Midwife
PROC: 10E0XZZ Delivery of Products of Conception, External Approach (ICD-10-PCS; principal; 2018-12-11)
PROC: 10D17Z9 Manual Extraction of Products of Conception, Retained, Via Natural or Artificial Opening (ICD-10-PCS; 2018-12-11)
PROC: 3E0P7VZ Introduction of Hormone into Female Reproductive, Via Natural or Artificial Opening (ICD-10-PCS; 2018-12-11)
DX: O16.4 Unspecified maternal hypertension, complicating childbirth (principal); Z37.0 Single live birth; Z3A.40 40 weeks gestation of pregnancy; O69.81X0 Labor and delivery complicated by cord around neck, without compression, not applicable or unspecified; O70.1 Second degree perineal laceration during delivery; O77.0 Labor and delivery complicated by meconium in amniotic fluid; O67.8 Other intrapartum hemorrhage; O72.1 Other immediate postpartum hemorrhage; O72.2 Delayed and secondary postpartum hemorrhage; O62.3 Precipitate labor; O64.8XX0 Obstructed labor due to other malposition and malpresentation, not applicable or unspecified
CPT/HCPCS: 36415; 59409; 80053; 80305-QW; 81001; 82570; 83615; 84156; 85014; 85018; 85025; 86850; 86900; 86901; 88307; 99211; A9270-GY; J0690; J2001; J2210; J2590; J3010; J7120